=== PATIENT | male | born 1940 | race Caucasian/White ===

== ENCOUNTER 2019-05-01 16:36 | Inpatient (IN) | payer MEDICARE ==
[2019-05-01] MEDS ORDERED: NALOXONE 0.4 MG/ML 1 ML VIAL IV PRN (17:24)
[2019-05-01] MEDS ORDERED: IBUPROFEN 400 MG TAB PO PRN (17:24)
[2019-05-01] MEDS ORDERED: traMADol 50 MG TAB PO PRN (17:24)
[2019-05-01] MEDS ORDERED: ACETAMINOPHEN TAB 325 MG TAB PO PRN (17:24)
[2019-05-01] MEDS ORDERED: MORPHINE SULFATE 4 MG/ML SYRINGE IV PRN (17:24)
[2019-05-01] MEDS ORDERED: HYDROmorphone 0.5 MG/0.5 ML SYRINGE IVP PRN (17:24)
[2019-05-01] MEDS ORDERED: cefTRIAXone IN SWFI 1,000 MG/10 ML SYRINGE IVP STA (17:28)
[2019-05-01 18:17] LABS: Basophils # (A) 0.1 k/uL (0-0.2); Basophils % (A) 1 %; Eosinophils # (A) 0.3 k/uL (0-0.7); Eosinophils % (A) 4 %; HCT 44.7 % (39.0-53.0); HGB 14.5 gm/dL (13.0-17.5); Lymphocytes # (A) 1.6 k/uL (1.0-4.8); Lymphocytes % (A) 27 %; MCH 31.8 pg (25.0-35.0); MCHC 32.5 g/dL (31.0-37.0); Mean Platelet Volume 8.8; Monocytes # (A) 0.3 k/uL (0-1.0); Monocytes % (A) 5 %; Neutrophils # (A) 3.7 k/uL (1.3-7.7); Neutrophils % (A) 62 %; Platelet Count 162 k/uL (150-450); RBC 4.56 m/uL (4.30-5.90); RDW 13.5 % (11.5-15.5)
--- NOTE | 2019-05-01 18:17 | XR ---
EXAMINATION TYPE: XR tibia fibula LT DATE OF EXAM: 05/01/2019 COMPARISON: NONE HISTORY: Nonhealing wound TECHNIQUE: 4 views FINDINGS: I see no fracture nor dislocation. There is laceration deformity of the anterior soft tissu es of the mid tibia. There is no sign of a foreign body. Knee joint and ankle joint appear intact. IMPRESSION: Soft tissue deformity. No fracture seen. No sign of osteomyelitis.
[2019-05-01 18:26] LABS: Calcium 8.8 mg/dL (8.4-10.2); Potassium 5.5 mmol/L (3.5-5.1); Total Bilirubin 0.9 mg/dL (0.2-1.3); Total Protein 6.9 g/dL (6.3-8.2)
--- NOTE | 2019-05-01 18:30 | ED ---
General Adult HPI - General Chief complaint: Wound/Laceration Stated complaint: Infection on Leg Time Seen by Provider: 05/01/19 16:44 Source: patient Mode of arrival: ambulatory Limitations: no limitations - History of Present Illness Initial comments: Patient is 78-year-old diabetic male presenting to emergency Department with a chief complaint of an infected wound on the leg. Patient reports he felt although approximately 2 weeks ago and lacerated the anterior aspect of his left lower extremity. Patient reports once he had the sutures removed he had developed a problem. Patient reports the wound has been increasing in size as well as erythema surrounding the wound. Patient reports over the last 5 days he has developed yellowish discharge. Patient also reports over the last 2 days a foul odor has developed. Patient denies fevers, night sweats or chills. Patient reports bilateral lower extremity edema states that is his baseline due to poor lymphatic circulation. - Related Data Home Medications Medication Instructions Recorded Confirmed Glimepiride [Amaryl] 4 mg PO BID 12/16/15 05/01/19 Metoprolol Succinate [Toprol XL] 100 mg PO DAILY 12/16/15 05/01/19 Albuterol Sulfate [Proair Hfa] 1 - 2 puff INHALATION Q6HR PRN 05/01/19 05/01/19 Allopurinol [Zyloprim] 100 mg PO DAILY 05/01/19 05/01/19 Atorvastatin Calcium [Lipitor] 40 mg PO HS 05/01/19 05/01/19 Clopidogrel Bisulfate [Plavix] 75 mg PO HS 05/01/19 05/01/19 Furosemide [Lasix] 20 mg PO DAILY PRN 05/01/19 05/01/19 Gabapentin [Neurontin] 100 mg PO TID 05/01/19 05/01/19 Lisinopril 20 mg PO HS 05/01/19 05/01/19 metFORMIN HCL [Glucophage] 500 mg PO BID 05/01/19 05/01/19 Allergies Allergy/AdvReac Type Severity Reaction Status Date / Time iodine Allergy Rash/Hives Verified 05/01/19 18:02 Penicillins Allergy Rash/Hives Verified 05/01/19 18:02 Review of Systems ROS Statement: Those systems with pertinent positive or pertinent negative responses have been documented in the HPI. ROS Other: All systems not noted in ROS Statement are negative. Past Medical History Past Medical History: COPD, Diabetes Mellitus, Hyperlipidemia, Hypertension History of Any Multi-Drug Resistant Organisms: None Reported Past Surgical History: Cholecystectomy, Coronary Bypass/CABG Additional Past Surgical History / Comment(s): Muscle flap over chest, Bilateral vein stripping, Bilateral chordids cleaned. Past Psychological History: No Psychological Hx Reported Smoking Status: Former smoker Past Alcohol Use History: Occasional Past Drug Use History: None Reported General Exam Limitations: no limitations General appearance: alert, in no apparent distress Head exam: Present: atraumatic, normocephalic, normal inspection Eye exam: Present: normal appearance, PERRL, EOMI Pupils: Present: normal accommodation ENT exam: Present: normal exam, mucous membranes moist, normal external ear exam Neck exam: Present: normal inspection, full ROM Respiratory exam: Present: normal lung sounds bilaterally Cardiovascular Exam: Present: regular rate, normal rhythm, normal heart sounds Extremities exam: Present: full ROM (Full range of motion bilateral lower e xtremities), tenderness (Tenderness along the wound site on the anterior aspect of the left lower extremity), normal capillary refill, pedal edema (+3 nonpitting edema), other (Bilateral lower extremity edema). Absent: normal inspection (Draining wound on the anterior aspect of the left lower extremity in linear fashion measuring approximately 6 cm. Surrounding erythema.), calf tenderness Back exam: Present: normal inspection, full ROM. Absent: CVA tenderness (R), CVA tenderness (L) Neurological exam: Present: alert, oriented X3 Psychiatric exam: Present: normal affect, normal mood Skin exam: Present: warm, intact, normal color Course Vital Signs 05/01/19 16:41 Temperature 97.4 F L Pulse Rate 53 L Respiratory 18 Rate Blood Pressure 172/75 O2 Sat by Pulse 98 Oximetry Medical Decision Making - Medical Decision Making Patient is 78-year-old diabetic male presented emergency department with a chief complaint of a wound on the left leg. Based on history and physical examination the wound appears to be increasing in size. Patient also reports increasing severity in pain. Wound appears to be infected with no developed foul odor. x-ray is indicative of soft tissue deformity but no signs osteomyelitis this is noted. CBC is unremarkable. CMP showing elevated BUN and creatinine. Blood cultures and lactic acid pending. Patient given Rocephin. Due to the fact the patient is diabetic and the wound appears to be infected along with new onset of order, patient will be admitted for further medical management. Case discussed with Dr. Lind. Admitting physician is Dr. Montana. - Lab Data Result diagrams: 05/01/19 18:11 05/01/19 18:11 Lab Results 05/01/19 05/01/19 05/01/19 Range/Units 18:11 18:11 18:11 WBC 6.0 (3.8-10.6) k/uL RBC 4.56 (4.30-5.90) m/uL Hgb 14.5 (13.0-17.5) gm/dL Hct 44.7 (39.0-53.0) % MCV 98.0 (80.0-100.0) fL MCH 31.8 (25.0-35.0) pg MCHC 32.5 (31.0-37.0) g/dL RDW 13.5 (11.5-15.5) % Plt Count 162 (150-450) k/uL Neutrophils % 62 % Lymphocytes % 27 % Monocytes % 5 % Eosinophils % 4 % Basophils % 1 % Neutrophils # 3.7 (1.3-7.7) k/uL Lymphocytes # 1.6 (1.0-4.8) k/uL Monocytes # 0.3 (0-1.0) k/uL Eosinophils # 0.3 (0-0.7) k/uL Basophils # 0.1 (0-0.2) k/uL Sodium 138 (137-145) mmol/L Potassium 5.5 H (3.5-5.1) mmol/L Chloride 106 (98-107) mmol/L Carbon Dioxide 24 (22-30) mmol/L Anion Gap 8 mmol/L BUN 28 H (9-20) mg/dL Creatinine 1.97 H (0.66-1.25) mg/dL Est GFR (CKD-EPI)AfAm 37 (>60 ml/min/1.73 sqM) Est GFR (CKD-EPI)NonAf 32 (>60 ml/min/1.73 sqM) Glucose 144 H (74-99) mg/dL Plasma Lactic Acid Tyler 0.9 (0.7-2.0) mmol/L Calcium 8.8 (8.4-10.2) mg/dL Total Bilirubin 0.9 (0.2-1.3) mg/dL AST 25 (17-59) U/L ALT 23 (21-72) U/L Alkaline Phosphatase 102 (38-126) U/L Total Protein 6.9 (6.3-8.2) g/dL Albumin 4.0 (3.5-5.0) g/dL Disposition Clinical Impression: Diabetic ulcer of lower leg Disposition: HOME SELF-CARE Condition: Stable Instructions (If sedation given, give patient instructions): Diabetic Foot Ulcers (ED), Foot Care for People with Diabetes (ED) Additional Instructions: Patient will be admitted. Is patient prescribed a controlled substance at d/c from ED?: No Referrals: Pb Muir MD [Primary Care Provider] - 1-2 days Time of Disposition: 18:34
[2019-05-01] MEDS: SODIUM CHLORIDE 0.9% 1,000 ML IV SCH (19:54)
[2019-05-01 20:37] LABS: Glucose,Whole Blood 127 mg/dL (75-99)
[2019-05-01] MEDS: GABAPENTIN 100 MG CAP PO SCH (23:38)
[2019-05-01] MEDS: CLOPIDOGREL 75 MG TAB PO SCH (23:38)
[2019-05-01] MEDS: ATORVASTATIN 40 MG TAB PO SCH (23:38)
[2019-05-01] MEDS ORDERED: HYDROcodone/APAP 5-325MG 1 EACH TAB PO PRN (23:47)
[2019-05-01] MEDS ORDERED: ALPRAZolam 0.25 MG TAB PO PRN (23:47)
[2019-05-02] MEDS ORDERED: LEVOFLOXACIN 500MG-D5W PMX 500 MG in DEXTROSE/WATER 1 100ML.BAG IVPB ONE (01:00)
[2019-05-02 02:52] LABS: Appearance,Urine Clear (Clear); Bilirubin,Urine Negative (Negative); Blood,Urine Negative (Negative); Color,Urine Light Yellow; Glucose,Urine (UA) Negative (Negative); Ketones,Urine Negative (Negative); Leukocyte Esterase,Urine Negative (Negative); Nitrite,Urine Negative (Negative); PH, Urine 6.5 (5.0-8.0); Protein,Urine Trace (Negative); Urobilinogen,Urine <2.0 mg/dL (<2.0)
--- NOTE | 2019-05-02 07:15 | HP ---
HISTORY AND PHYSICAL CHIEF COMPLAINT: Pain and swelling and wound of the left leg. HISTORY OF PRESENT ILLNESS: This 78-year-old gentleman with a past medical history of multiple medical problems including COPD, diabetes mellitus, hypertension, hyperlipidemia, history of CAD, CABG being followed by Dr. Pb Muir in the outpatient setting admitted with pain and swelling of infection of the left leg with increase in swelling. The patient suffered an injury with laceration about 2 weeks ago. There is no history of fever, rigors. No history of headache, loss of consciousness or seizures. The patient had sutures which were removed and had problems subsequently. PAST MEDICAL HISTORY: History of COPD, diabetes mellitus, hypertension, hyperlipidemia, history of CAD, CABG. MEDICATIONS: Medications prior to admission include home medications: 1. Lisinopril 20 mg q.h.s. 2. Lasix 20 mg q.h.s. 3. Plavix 75 mg p.o. q.h.s. 4. Lipitor 40 mg q.h.s. 5. ProAir HFA 1 to 2 puffs q.6 p.r.n. 6. Toprol XL 100 mg p.o. daily. 7. Amaryl 4 mg p.o. b.i.d. 8. Zyloprim 100 mg p.o. daily. 9. Glucophage 500 mg p.o. b.i.d. 10.Neurontin 100 mg t.i.d. ALLERGIES: IODINE and PENICILLIN. FAMILY HISTORY: No history of heart disease or strokes in the family. SOCIAL HISTORY: Previous history of smoking. Occasional alcohol intake. REVIEW OF SYSTEMS: ENT: No diminished hearing or diminished vision. CARDIOVASCULAR SYSTEM: No angina. RESPIRATORY SYSTEM: No cough or hemoptysis. GI: No nausea. : No dysuria. NERVOUS SYSTEM: No numbness or weakness. ALLERGY/IMMUNOLOGY: No asthma or hayfever. MUSCULOSKELETAL: As mentioned earlier. HEMATOLOGY/ONCOLOGY: No history of anemia. ENDOCRINE: Diabetes mellitus. CONSTITUTIONAL: As mentioned earlier. DERMATOLOGY: As mentioned earlier. RHEUMATOLOGY: Negative. PSYCHIATRY: As mentioned earlier. PHYSICAL EXAMINATION: The patient is alert and oriented x3. Pulse is 53, blood pressure 172/75, respiration 18, temperature 97.4, pulse ox 98% on room air. HEENT: Conjunctivae normal. Oral mucosa moist. NECK is no jugular venous distention. No carotid bruit. No lymph node enlargement. CARDIOVASCULAR: S1, S2 muffled. RESPIRATORY: Breath sounds diminished at the bases. No rhonchi, no crackles. ABDOMEN: Soft, nontender. No mass palpable. LEGS: Significant swelling and pain and swelling and erythema and wound on the left chacko area present. Some yellowish discharge also present. NERVOUS SYSTEM: Higher functions as mentioned. Moves all 4 limbs. No focal motor LYMPHATICS: No lymphadenopathy of the neck, axillae or groin. JOINTS: No active deforming arthropathy. LABS: WBC 6, hemoglobin 14.5, sodium 138, potassium 5.5, creatinine 1.97. ASSESSMENT: 1. Cellulitis and infected wound of the left chacko area with failure of outpatient treatment. 2. Increased creatinine with possibly chronic kidney disease. 3. Hyperkalemia, mild. 4. Diabetes mellitus type 2. 5. Hypertension. 6. Hyperlipidemia. 7. Chronic obstructive pulmonary disease. 8. History of coronary artery disease, coronary artery bypass grafting. 9. Cholecystectomy. 10.Remote history of nicotine dependence. 11.Obesity with body mass of 32.5. RECOMMENDATIONS AND DISCUSSION: This 78-year-old gentleman who presented with multiple medical issues, at this time I recommend to continue current medications, continue symptomatic treatment, on broad- spectrum IV antibiotics. Otherwise, I would also get infectious Disease, orthopedic evaluations and resume the home medications. Prognosis guarded because of multiple complex medical issues. Further recommendations to follow. The patient is allergic to PENICILLINS. We will obtain cultures as well. DVT prophylaxis. See orders for details. We will avoid lisinopril because of hyperkalemia. Repeat labs will be ordered. MMODL / IJN: [id number] /
[2019-05-02 07:23] LABS: Glucose,Whole Blood 141 mg/dL (75-99)
[2019-05-02] MEDS: ALBUTEROL NEBULIZED 2.5 MG/3 ML INHALATION PRN ×2 (07:39→16:18)
[2019-05-02] MEDS: METOPROLOL SUCCINATE (ER) 100 MG TAB.ER.24H PO SCH (07:53)
[2019-05-02] MEDS: GABAPENTIN 100 MG CAP PO SCH ×3 (07:53→21:27)
[2019-05-02] MEDS: ALLOPURINOL 100 MG TAB PO SCH (07:53)
[2019-05-02] MEDS: INSULIN ASPART (NovoLOG) 100 UNIT/ML VIAL SQ SCH ×4 (07:54→21:44)
[2019-05-02] MEDS: HEPARIN SODIUM,PORCINE 5,000 UNIT/ML 1 ML VIAL SQ SCH ×2 (07:54→21:45)
--- NOTE | 2019-05-02 08:20 | US ---
EXAMINATION TYPE: US venous doppler duplex LE LT DATE OF EXAM: 05/02/2019 7:51 AM COMPARISON: NONE CLINICAL HISTORY: dvt. left leg ulcer, swelling, no h/o dvt SIDE PERFORMED: Left TECHNIQUE: The lower extremity deep venous system is examined utilizing real time linear array sonog juice with graded compression, doppler sonography and color-flow sonography. VESSELS IMAGED: External Iliac Vein (EIV) Common Femoral Vein Deep Femoral Vein Greater Saphenous Vein * Femoral Vein Popliteal Vein Small Saphenous Vein * Proximal Calf Veins (* superficial vessels) Left Leg: Appears negative for DVT IMPRESSION: 1. Left lower extremity ultrasound negative for deep venous thrombosis.
[2019-05-02] MEDS: SODIUM CHLORIDE 0.9% 1,000 ML IV SCH ×2 (09:47→19:35)
[2019-05-02 09:52] LABS: Basophils # (A) 0.1 k/uL (0-0.2); Basophils % (A) 1 %; Eosinophils # (A) 0.2 k/uL (0-0.7); Eosinophils % (A) 3 %; HCT 42.9 % (39.0-53.0); HGB 13.5 gm/dL (13.0-17.5); Lymphocytes # (A) 1.1 k/uL (1.0-4.8); Lymphocytes % (A) 20 %; MCH 30.7 pg (25.0-35.0); MCHC 31.5 g/dL (31.0-37.0); MCV 97.4 fL (80.0-100.0); Mean Platelet Volume 9.5; Monocytes # (A) 0.2 k/uL (0-1.0); Monocytes % (A) 4 %; Neutrophils % (A) 71 %; Platelet Count 157 k/uL (150-450); RDW 14.3 % (11.5-15.5); WBC 5.6 k/uL (3.8-10.6)
[2019-05-02 10:01] LABS: Calcium 8.6 mg/dL (8.4-10.2)
--- NOTE | 2019-05-02 10:08 | CDI ---
Documentation Clarification Form Date: 05/02/2019 9:29:28 AM From: Shama Dietrich RN CCDS Admit Date: 05/01/2019 5:22:00 PM Patient Name: Mann Negron Visit Number: [id number] Discharge Date: ATTENTION: The Clinical Documentation Specialists (CDI) and [facility] Coding Staff appreciate your assistance in clarifying documentation. Please respond to the clarification below the line at the bottom and electronically sign. The CDI & [facility] Coding staff will review the response and follow-up if needed. Please note: Queries are made part of the Legal Health Record. If you have any questions, please contact the author of this message via ITS. Dr. Abisai Montana The patient has diabetes type 2 , as indicated on H & P 05/01/2019 History/Risk Factors: 78 year old male presents to the ED after out patient treatment of an laceration injury that happened about two weeks ago which is painful, and increased swelling. Med Hx COPD DM HTN hyperlipidemia CAD CABG Clinical Indicators: Wound gram stain - Rare Polymorphonuclear leukocytes, many Gram Positive Cocci many gram positive bacilli and a few gram negative bacilli Treatment: Novolog, Levofloxacin ivpb, Infectious Disease Consult , Orthopedic Consult In order to capture the severity of Illness and necessary documentation specificity, please Clarify Left chacko wound infection with cellulitis is related to DM Type 2 Left chacko wound infection with cellulitis is not related to DM Type Other, please specify Unable to Determine (Last Revision: June 2017) Left chacko wound infection with cellulitis is related to DM Type 2 MTDD
[2019-05-02 10:22] LABS: Potassium 6.5 mmol/L (3.5-5.1)
[2019-05-02] MEDS ORDERED: DEXTROSE 50% SYRINGE 50 ML IVP STA (10:33)
[2019-05-02] MEDS ORDERED: SODIUM POLYSTYRENE SULFONATE 15 GM/60 ML BOTTLE PO STA (10:33)
[2019-05-02] MEDS ORDERED: INSULIN REGULAR 100 UNIT/ML VIAL IV ONE ×2 (10:33→20:19)
[2019-05-02] MEDS ORDERED: CALCIUM GLUCONATE 1 GM in SODIUM CHLORIDE 0.9% 100 ML IVPB ONE (10:33)
[2019-05-02] MEDS ORDERED: DEXTROSE 10 % IN WATER 250 ML IV STA (10:37)
[2019-05-02 12:16] LABS: Glucose,Whole Blood 244 mg/dL (75-99)
--- NOTE | 2019-05-02 12:24 | P.NPCON ---
History of Present Illness - Reason for Consult acute renal failure - History of Present Illness Reason for consultation: Acute kidney injury History of present illness: Patient is a 78-year-old male seen in renal consultation for acute kidney injury. Unclear as to what his baseline renal function is. Creatinine was 1.97 on admission and is 1.77 today. He is maintained on IV fluids. Admits to good urine output. No hematuria or dysuria. Patient presented to the hospital with wound on his left lower extremity. Patient did notice yellowish drainage from the wound. He is currently maintained on IV antibiotics. States he was diagnosed with diabetes about 5 years ago. Patient states he did take some Aleve about a week ago but hasn't taken it the last few days. No vomiting or diarrhea. No chest pain or shortness of breath. Patient's potassium level is 6.5 today. Lisinopril is held. Blood sugar also on the higher side at 221. UA is quite benign. No evidence of hypotension. In fact his blood pressure is slightly on the higher side. Vital signs are stable. General: The patient appeared well nourished and normally developed. HEENT: Head exam is unremarkable. Neck is without jugular venous distension. LUNGS: Lungs are clear to auscultation and percussion. Breath sounds decreased. HEART: Rate and Rhythm are regular. First and second heart sounds normal. No murmurs, rubs or gallops. ABDOMEN: Abdominal exam reveals normal bowel sounds. Non-tender and non- distended. No evidence of peritonitis. EXTREMITITES: No clubbing, cyanosis, or edema. Left lower extremity wound noted. No obvious drainage. Past Medical History Past Medical History: COPD, Diabetes Mellitus, Hyperlipidemia, Hypertension History of Any Multi-Drug Resistant Organisms: None Reported Past Surgical History: Cholecystectomy, Coronary Bypass/CABG Additional Past Surgical History / Comment(s): Muscle flap over chest, Bilateral vein stripping, Bilateral chordids cleaned. Past Anesthesia/Blood Transfusion Reactions: No Reported Reaction Past Psychological History: No Psychological Hx Reported Smoking Status: Former smoker Past Alcohol Use History: Occasional Past Drug Use History: None Reported - Past Family History Father Family Medical History: Diabetes Mellitus Medications and Allergies Home Medications Medication Instructions Recorded Confirmed Type Glimepiride [Amaryl] 4 mg PO BID 12/16/15 05/01/19 History Metoprolol Succinate [Toprol XL] 100 mg PO DAILY 12/16/15 05/01/19 History Albuterol Sulfate [Proair Hfa] 1 - 2 puff INHALATION Q6HR PRN 05/01/19 05/01/19 History Allopurinol [Zyloprim] 100 mg PO DAILY 05/01/19 05/01/19 History Atorvastatin Calcium [Lipitor] 40 mg PO HS 05/01/19 05/01/19 History Clopidogrel Bisulfate [Plavix] 75 mg PO HS 05/01/19 05/01/19 History Furosemide [Lasix] 20 mg PO DAILY PRN 05/01/19 05/01/19 History Gabapentin [Neurontin] 100 mg PO TID 05/01/19 05/01/19 History Lisinopril 20 mg PO HS 05/01/19 05/01/19 History metFORMIN HCL [Glucophage] 500 mg PO BID 05/01/19 05/01/19 History Allergies Allergy/AdvReac Type Severity Reaction Status Date / Time iodine Allergy Rash/Hives Verified 05/01/19 18:02 Penicillins Allergy Rash/Hives Verified 05/01/19 18:02 Physical Exam Vitals: Vital Signs Temp Pulse Pulse Resp BP BP Pulse Ox 05/02/19 07:49 56 L 16 05/02/19 07:39 54 L 16 05/02/19 07:06 97.3 F L 59 L 16 153/78 93 L 05/01/19 20:25 97.9 F 53 L 16 157/72 92 L 05/01/19 20:02 97.1 F L 16 L 52 H 96 05/01/19 18:48 98.6 F 05/01/19 16:41 97.4 F L 53 L 18 172/75 98 Intake and Output 05/01/19 05/02/19 05/02/19 22:59 06:59 14:59 Other: # Voids 1 Weight 108.862 kg Results - Lab Results Most recent lab results Calcium 8.6 mg/dL (8.4-10.2) 05/02/19 09:04 05/02/19 09:04 05/02/19 09:04 Assessment and Plan Plan: Assessment: 1. Acute kidney injury mostly prerenal improving with IV hydration. Creatinine was 1.97 on admission and is 1.77 today. UA reveals trace proteinuria. Rule out urinary retention. Unknown baseline creatinine. Will need to establish baseline renal function. 2. Left lower extremity wound maintained on IV antibiotics. No evidence of DVT. 3. Hyperkalemia secondary to acute kidney injury and lisinopril. No evidence of acidosis. Blood sugar is not too elevated. 4. Diabetes mellitus. 5. Benign hypertension. Plan: I will decrease rate of normal saline to 50 mL an hour. 10 units of IV insulin with an amp of D50 now. Patient also received IV calcium and Kayexalate. Repeat potassium level at 3 PM today. Low potassium diet. Avoid nephrotoxins. Continue to hold lisinopril. Continue to monitor renal function and urine output. Check bladder scan to rule out underlying urinary retention. Check renal ultrasound. Thank you for the consultation. I will continue to follow the patient with you during his hospital stay.
[2019-05-02] MEDS: DEXTROSE 5% IN WATER 1,000 ML with SODIUM BICARB (1 MEQ/ML) 50 ML IV SCH ×2 (12:36→21:43)
--- NOTE | 2019-05-02 15:39 | US ---
EXAMINATION TYPE: US renals and bladder DATE OF EXAM: 05/02/2019 COMPARISON: NONE CLINICAL HISTORY: dolly. DOLLY EXAM MEASUREMENTS: Right Kidney: 12.6 x 5.3 x 4.5 cm Left Kidney: 11.0 x 4.7 x 4.1 cm Right Kidney: Prominent mid pole measuring 4.0 x 2.7 x 3.5 cm. Left Kidney: wnl Bladder: Anechoic Bilateral Jets seen: Yes IMPRESSION: 1. There is an unusual appearance to the mid pole right kidney. Underlying mass should be considered. Recommend contrast CT abdomen and pelvis for additional evaluation.
--- NOTE | 2019-05-02 16:06 | PN ---
PROGRESS NOTE DATE OF SERVICE: 05/02/2019 This 78-year-old gentleman who was admitted with pain and swelling of the left leg has significant ulceration and cellulitis also. The patient is on broad-spectrum IV antibiotics. Today the patient also had potassium elevated at 6.5. Creatinine was 1.77. Hyperkalemia could be multifactorial, and the patient was given Kayexalate as well as a combination insulin/glucose regimen with bicarbonate and potassium and calcium gluconate, also. Nephrology has been consulted. Patient is being closely monitored at this time. Infectious Disease has been evaluating the patient. Patient is on broad- spectrum IV antibiotics. Cultures are pending at this time. Past medical history reviewed. REVIEW OF SYSTEMS: CARDIOVASCULAR SYSTEM: As mentioned earlier. RESPIRATORY SYSTEM: As mentioned earlier. GI: No nausea, vomiting. : No dysuria or retention. NERVOUS SYSTEM: No numbness, weakness. CURRENT MEDICATIONS: Reviewed. They include: 1. Tylenol 650 q.6 p.r.n. 2. [place] 5 mg q.6 p.r.n. 3. Ventolin 2.5 q.6 p.r.n. 4. Zyloprim 100 mg p.o. daily. 5. Xanax 0.25 t.i.d. 6. Lipitor 40 mg at bedtime. 7. Plavix 75 mg p.o. at bedtime. 8. Neurontin 100 mg p.o. t.i.d. 9. Heparin 5000 units subcutaneously b.i.d. 10.Dilaudid 0.5 mg q.3 p.r.n. 11.NovoLog scale. 12.Levaquin 250 mg b.i.d. 13.Toprol-XL 100 mg p.o. daily. 14.Morphine 4 mg p.r.n. 15.Narcan 0.2 q.2 p.r.n. 16.Ultram 50 mg q.6 p.r.n. PHYSICAL EXAMINATION: Patient is alert, oriented x3. Pulse 59, blood pressure 153/78, respirations 16, temperature 97.3, pulse ox 93% on room air. HEENT: Conjunctivae normal. Oral mucosa moist. NECK: No jugular venous distention. No carotid bruit. No lymph node enlargement. CARDIOVASCULAR SYSTEM: S1, S2 muffled. No S3. No S4. RESPIRATORY SYSTEM: Breath sounds diminished at the bases. No rhonchi. No crackles. ABDOMEN: Soft, non-tender. No mass palpable. LEGS: Significant swelling, pain and ulceration of the left leg present. Some tenderness also present. NERVOUS SYSTEM: Higher functions as mentioned earlier. Moves all 4 limbs. No focal motor or sensory deficit. LYMPHATICS: No lymph node palpable in neck, axillae or groin. SKIN: As mentioned earlier. JOINTS: No active deforming arthropathy. LABS: WBC 5.6, hemoglobin 13.4. Sodium 139, potassium 6.5, BUN is 23, creatinine 1.77. UA noted. ASSESSMENT: 1. Cellulitis and infected wound of the left chacko area with failure of outpatient treatment. 2. Hyperkalemia, severe, secondary to renal failure. 3. Increased creatinine, possibly chronic kidney disease, stage III, with some acute renal failure component. 4. Diabetes mellitus, type 2. 5. Hypertension. 6. Hyperlipidemia. 7. Chronic obstructive pulmonary disease. 8. History of coronary artery disease, coronary artery bypass grafting. 9. Cholecystectomy. 10.Remote history of nicotine dependence. 11.Obesity with body mass index of 32.5. RECOMMENDATIONS AND DISCUSSION: I recommend to continue current medications, continue with the monitoring, symptomatic treatment. Continue with IV antibiotics. Will closely monitor with Nephrology as well as Infectious Disease. The potassium is elevated at 6.5. Recommend low-potassium diet as well as Kayexalate and insulin/glucose regimen. Please see orders for the same. As mentioned earlier, we will repeat the electrolytes and closely follow with Nephrology. Otherwise, monitor blood sugars closely. The prognosis is guarded because of multiple complex medical issues. Hemoglobin A1c is also being sought. Further recommendations to follow. Renal ultrasound has been requested. Venous Doppler was negative for any DVT. MMODL / IJN: [id number] /
[2019-05-02 17:12] LABS: Glucose,Whole Blood 79 mg/dL (75-99)
--- NOTE | 2019-05-02 20:11 | P.CNOR ---
<Regulo Peña - Last Filed: 05/02/19 20:11> History of Present Illness - [facility] Consult date: 05/02/19 History of present illness: This patient is a 78-year-old male past medical history of COPD, diabetes type 2, hypertension, hyperlipidemia, history of CABG currently taking Plavix who sustained an injury to the left lower leg about 2 weeks ago. The patient states that [place] and he [place], and sustained a laceration. He states he was evaluated at [facility] following injury, and sutures are placed. Patient states his sutures were removed at his primary care physician's office 2 days later. He states he was never given oral antibiotics. He states he started to notice drainage and erythema of the area, and he also noticed an odor from the area, therefore he was evaluated at an urgent care. He states the provider at the urgent care directed the patient to the emergency department for evaluation. The patient was seen to [facility] ER and placed on IV antibiotics, and was subsequently admitted to internal medicine with consults placed to infectious disease and orthopedic surgery. Patient denies fevers, chills, nausea, vomiting. He states overall he feels well. He denies any additional complaints at the time of exam. Past Medical History Past Medical History: COPD, Diabetes Mellitus, Hyperlipidemia, Hypertension History of Any Multi-Drug Resistant Organisms: None Reported Past Surgical History: Cholecystectomy, Coronary Bypass/CABG Additional Past Surgical History / Comment(s): Muscle flap over chest, Bilateral vein stripping, Bilateral chordids cleaned. Past Anesthesia/Blood Transfusion Reactions: No Reported Reaction Past Psychological History: No Psychological Hx Reported Smoking Status: Former smoker Past Alcohol Use History: Occasional Past Drug Use History: None Reported - Past Family History Father Family Medical History: Diabetes Mellitus Medications and Allergies Home Medications Medication Instructions Recorded Confirmed Type Glimepiride [Amaryl] 4 mg PO BID 12/16/15 05/01/19 History Metoprolol Succinate [Toprol XL] 100 mg PO DAILY 12/16/15 05/01/19 History Albuterol Sulfate [Proair Hfa] 1 - 2 puff INHALATION Q6HR PRN 05/01/19 05/01/19 History Allopurinol [Zyloprim] 100 mg PO DAILY 05/01/19 05/01/19 History Atorvastatin Calcium [Lipitor] 40 mg PO HS 05/01/19 05/01/19 History Clopidogrel Bisulfate [Plavix] 75 mg PO HS 05/01/19 05/01/19 History Furosemide [Lasix] 20 mg PO DAILY PRN 05/01/19 05/01/19 History Gabapentin [Neurontin] 100 mg PO TID 05/01/19 05/01/19 History Lisinopril 20 mg PO HS 05/01/19 05/01/19 History metFORMIN HCL [Glucophage] 500 mg PO BID 05/01/19 05/01/19 History Allergies Allergy/AdvReac Type Severity Reaction Status Date / Time iodine Allergy Rash/Hives Verified 05/01/19 18:02 Penicillins Allergy Rash/Hives Verified 05/01/19 18:02 Physical Examination On examination, the patient is sitting up in bed in no apparent distress. He is alert and orientated x3. Granddaughter's bedside. His head appears normocephalic and atraumatic. His breathing appears nonlabored. On inspection of the left lower extremity, there is an Deion wrap in place. Deion wrap was taken down and reveals a wound of the pretibial area with active yellow drainage. The wound is foul-smelling. The wound appears to be about 4-5 cm. There is barton rrounding erythema and tenderness. There is no fluctuance. There is no tenderness on palpation of the calf. Patient has full range of motion of the ankle and toes. Sensation is intact to light touch of the plantar and dorsal foot, as well as the dorsal first webspace. Dorsalis pedis pulse palpable. Brisk capillary refill of all toes. Results Left tibia/fibula x-ray 05/01/19: No acute fractures. No signs of osteomyelitis. Doppler ultrasound left lower extremity 05/02/2019: Negative for DVT. - Labs Labs: Abnormal Lab Results - Last 24 Hours (Table) 05/01/19 05/02/19 05/02/19 Range/Units 20:36 02:35 07:03 Potassium (3.5-5.1) mmol/L BUN (9-20) mg/dL Creatinine (0.66-1.25) mg/dL Glucose (74-99) mg/dL POC Glucose (mg/dL) 127 H 141 H (75-99) mg/dL Urine Protein Trace H (Negative) 05/02/19 05/02/19 05/02/19 Range/Units 09:04 11:55 14:41 Potassium 6.5 H* 5.8 H (3.5-5.1) mmol/L BUN 23 H (9-20) mg/dL Creatinine 1.77 H (0.66-1.25) mg/dL Glucose 221 H (74-99) mg/dL POC Glucose (mg/dL) 244 H (75-99) mg/dL Urine Protein (Negative) Microbiology - Last 24 Hours (Table) 05/01/19 18:40 Gram Stain - Preliminary Leg - Left Wound Culture - Preliminary H & H 05/01/19 05/02/19 Range/Units 18:11 09:04 Hgb 14.5 13.5 (13.0-17.5) gm/dL Hct 44.7 42.9 (39.0-53.0) % Result Diagrams: 05/02/19 09:04 05/02/19 14:41 Assessment and Plan Assessment: Infected wound left anterior lower leg, with surrounding cellulitis Plan: - Supportive treatment is recommended at this time. There is no operative intervention planned at this time. - Recommended local wound care, and continuation of IV antibiotics per infectious disease and internal medicine. - Wound cultures pending. - We will continue to follow this patient as he remains an inpatient make recommendations as needed. We will reassess the need for operative intervention if his condition worsens. Patient discussed with Dr. Mata. <Timi Mata - Last Filed: 05/03/19 15:27> Results - Labs Labs: Abnormal Lab Results - Last 24 Hours (Table) 05/02/19 05/03/19 05/03/19 Range/Units 21:01 06:36 06:58 Potassium 5.5 H (3.5-5.1) mmol/L Creatinine 1.56 H (0.66-1.25) mg/dL Glucose 183 H (74-99) mg/dL POC Glucose (mg/dL) 179 H 191 H (75-99) mg/dL 05/03/19 Range/Units 11:49 Potassium (3.5-5.1) mmol/L Creatinine (0.66-1.25) mg/dL Glucose (74-99) mg/dL POC Glucose (mg/dL) 124 H (75-99) mg/dL Microbiology - Last 24 Hours (Table) 05/01/19 18:05 Blood Culture - Preliminary Blood No Growth after 24 hours H & H 05/01/19 05/02/19 05/03/19 Range/Units 18:11 09:04 06:36 Hgb 14.5 13.5 14.8 (13.0-17.5) gm/dL Hct 44.7 42.9 46.5 (39.0-53.0) % Result Diagrams: 05/03/19 06:36 05/03/19 06:36 Assessment and Plan Plan: Discussed with CORI Peña and agree with above. Patient was subsequently seen and examined by myself as well. Family was at bedside. S: The patient denies history of chronic infections but does admit that he is slow to heal. Past medical history significant for bilateral lower extremity vascular surgery to "clean out" the vessels. He also required what sounds like a repair of the sternal wound dehiscence status post CABG with a likely pectoralis or latissimus flap. He states his diabetes is usually under better control with blood sugars averaging around 150. He states the wound and the leg is particularly painful most times but does cause occasional discomfort and radiating sensations of warmth around the wound. He denies fevers, chills or systemic feelings of illness. O: Examination of the left leg reveals a shallow, horseshoe-shaped open wound on the anterior aspect of the mid tibia. There is mild surrounding erythema, calor or edema but no discrete subcutaneous fluctuance or pockets of fluid to suggest abscess. The wound is malodorous. There is mild yellow drainage on the dressings but no florencio pus. The wound bed is moist with bazzi/yellow granular tissue. There is no visible exposed muscle or bone. Minimal tenderness to palpation immediately surrounding the wound. Note is made of chronic venous stasis changes in bilateral lower extremities. A: 1. Superficial wound infection with surrounding cellulitis status post traumatic laceration to the left leg 2. Multiple medical comorbidities including diabetes mellitus and peripheral vascular disease P: I discussed the clinical findings in detail with Mr. Negron and his family. We discussed the pros and cons of both nonsurgical and surgical interventions. I do not feel the wound requires surgical debridement at this time but this is certainly an option in the future if this fails to adequately respond to treatment with local wound care and IV antibiotics. Given his comorbidities and the location of the wound, surgical debridement would likely need to be followed by staged wound closure with either a synthetic graft versus a muscle flap such as a medial gastrocnemius flap. Initially, I recommended continued local wound care with mechanical debridement and topical treatment/dressings at the discretion of Dr. Evans. Questions were invited and answered to the best of my ability. The patient has family expressed understanding and agreement with the proposed plan. We will continue to monitor the patient while in the hospital. Thank you for allowing me to participate in the care of this patient. Timi Mata D.O. [facility]
[2019-05-02] MEDS ORDERED: DEXTROSE 10 % IN WATER 250 ML BAG IV STA (20:19)
[2019-05-02 21:03] LABS: Glucose,Whole Blood 179 mg/dL (75-99)
[2019-05-02] MEDS: ATORVASTATIN 40 MG TAB PO SCH (21:27)
[2019-05-02] MEDS: CLOPIDOGREL 75 MG TAB PO SCH (21:27)
[2019-05-02] MEDS ORDERED: LEVOFLOXACIN 250MG-D5W PMX 250 MG in DEXTROSE/WATER 1 50ML.BAG IVPB SCH (22:00)
--- NOTE | 2019-05-02 22:39 | P.CONS ---
History of Present Illness - Reason for Consult Consult date: 05/02/19 Left leg wound and cellulitis Requesting physician: Abisai Montana - Chief Complaint Left leg wound pain and swelling x 1 week - History of Present Illness Patient is a 78-year-old male who did injure his left leg about 2 weeks ago while trying to get out of the boat with resulting laceration for the patient was evaluated at [facility] ER and the patient did have a wound that was stretched out after removal of the stitches a week later patient did have a Wound at the left leg that has been taken care by his primary care physician however, over the last few days her the patient noticed more swelling redness and some dull aching pain to the left leg area intensity in 2-3 out of 10 and no radiation the patient did have some yellowish drainage from the wound as well he did have some chills but denies high-grade fever with concern for worsening infection the patient presented to [facility] ER patient did have lower extremity Doppler was negative for DVT x-rays of the left tibia and fibula has been negative for any fracture patient did well local wound culture of pain he did receive a dose of Rocephin and subsequently was started on Levaquin because of his penicillin ALLERGY and infection disease was consulted for further recommendation regarding antibiotic therapy Review of Systems CONSTITUTIONAL: Positive for weakness. Chills but denies high-grade Fever EYES: No complaint. ENT:No complaint. RESPIRATORY: No complaint. CARDIOVASCULAR: No complaint. GENITOURINARY: No complaint. GASTROINTESTINAL: No complaint. MUSCULOSKELETAL: As per history of present illness INTEGUMENTARY: As per history of present illness PSYCHOLOGICAL: No complaint. ENDOCRINE: No complaint. NEUROLOGIC: No complaint. Past Medical History Past Medical History: COPD, Diabetes Mellitus, Hyperlipidemia, Hypertension History of Any Multi-Drug Resistant Organisms: None Reported Past Surgical History: Cholecystectomy, Coronary Bypass/CABG Additional Past Surgical History / Comment(s): Muscle flap over chest, Bilateral vein stripping, Bilateral chordids cleaned. Past Anesthesia/Blood Transfusion Reactions: No Reported Reaction Past Psychological History: No Psychological Hx Reported Smoking Status: Former smoker Past Alcohol Use History: Occasional Past Drug Use History: None Reported - Past Family History Father Family Medical History: Diabetes Mellitus Medications and Allergies Home Medications Medication Instructions Recorded Confirmed Type Glimepiride [Amaryl] 4 mg PO BID 12/16/15 05/01/19 History Metoprolol Succinate [Toprol XL] 100 mg PO DAILY 12/16/15 05/01/19 History Albuterol Sulfate [Proair Hfa] 1 - 2 puff INHALATION Q6HR PRN 05/01/19 05/01/19 History Allopurinol [Zyloprim] 100 mg PO DAILY 05/01/19 05/01/19 History Atorvastatin Calcium [Lipitor] 40 mg PO HS 05/01/19 05/01/19 History Clopidogrel Bisulfate [Plavix] 75 mg PO HS 05/01/19 05/01/19 History Furosemide [Lasix] 20 mg PO DAILY PRN 05/01/19 05/01/19 History Gabapentin [Neurontin] 100 mg PO TID 05/01/19 05/01/19 History Lisinopril 20 mg PO HS 05/01/19 05/01/19 History metFORMIN HCL [Glucophage] 500 mg PO BID 05/01/19 05/01/19 History Allergies Allergy/AdvReac Type Severity Reaction Status Date / Time iodine Allergy Rash/Hives Verified 05/01/19 18:02 Penicillins Allergy Rash/Hives Verified 05/01/19 18:02 Physical Exam Vitals: Vital Signs Temp Pulse Pulse Resp BP BP Pulse Ox 05/02/19 07:49 56 L 16 05/02/19 07:39 54 L 16 05/02/19 07:06 97.3 F L 59 L 16 153/78 93 L 05/01/19 20:25 97.9 F 53 L 16 157/72 92 L 05/01/19 20:02 97.1 F L 16 L 52 H 96 05/01/19 18:48 98.6 F 05/01/19 16:41 97.4 F L 53 L 18 172/75 98 Intake and Output 05/01/19 05/02/19 05/02/19 22:59 06:59 14:59 Other: # Voids 1 Weight 108.862 kg GENERAL DESCRIPTION: An elderly male lying in bed, no distress. No tachypnea or accessory muscle of respiration use. HEENT: Shows Pallor , no scleral icterus. Oral mucous membrane is dry. No pharyngeal erythema or thrush NECK: Trachea central, no thyromegaly. LUNGS: Unlabored breathing. Clear to auscultation anteriorly. No wheeze or crackle. HEART: S1, S2, regular rate and rhythm. No loud murmur ABDOMEN: Soft, no tenderness , guarding or rigidity, no organomegaly EXTREMITIES: Left anterior leg covered with a wound with slough tissue at the base the surrounding swelling redness tender to touch but no foul-smelling drainage. SKIN: No rash, no masses palpable. NEUROLOGICAL: The patient is awake, alert, oriented x3, mood and affect normal. Results CBC & Chem 7: 05/02/19 09:04 05/02/19 14:41 Labs: Abnormal Lab Results - Last 24 Hours (Table) 05/01/19 05/01/19 05/02/19 Range/Units 18:11 20:36 02:35 Potassium 5.5 H (3.5-5.1) mmol/L BUN 28 H (9-20) mg/dL Creatinine 1.97 H (0.66-1.25) mg/dL Glucose 144 H (74-99) mg/dL POC Glucose (mg/dL) 127 H (75-99) mg/dL Urine Protein Trace H (Negative) 05/02/19 05/02/19 Range/Units 07:03 09:04 Potassium 6.5 H* (3.5-5.1) mmol/L BUN 23 H (9-20) mg/dL Creatinine 1.77 H (0.66-1.25) mg/dL Glucose 221 H (74-99) mg/dL POC Glucose (mg/dL) 141 H (75-99) mg/dL Urine Protein (Negative) Microbiology - Last 24 Hours (Table) 05/01/19 18:40 Gram Stain - Preliminary Leg - Left Wound Culture - Preliminary Assessment and Plan Assessment: 1-patient with acute left leg wound traumatic now with evidence of secondary cellulitis likely from gram-positive skin lurdes is likely gram-negative infection 2-patient with penicillin ALLERGY that limit the number of antibiotic safe to use 3-patient with elevated creatinine and high risk of nephrotoxicity from the vancomycin Plan: 1-local wound care with them and honey follow the moist dressing and mild compression dressing daily 2- daptomycin 500 mg daily on waiting for the cultures to finalize we will follow on clinical condition and culture to further adjust medication if needed Thank you for this consultation will follow this patient along with you Time with Patient: Greater than 30
[2019-05-02] MEDS: DAPTOmycin 500 MG in SODIUM CHLORIDE 0.9% 50 ML IVPB SCH (23:32)
[2019-05-03] MEDS: LEVOFLOXACIN 250 MG TAB PO SCH (05:38)
[2019-05-03 07:00] LABS: Glucose,Whole Blood 191 mg/dL (75-99)
[2019-05-03] MEDS: INSULIN ASPART (NovoLOG) 100 UNIT/ML VIAL SQ SCH ×4 (07:02→21:27)
[2019-05-03 07:15] LABS: Basophils # (A) 0.1 k/uL (0-0.2); Basophils % (A) 1 %; Eosinophils # (A) 0.3 k/uL (0-0.7); Eosinophils % (A) 4 %; HCT 46.5 % (39.0-53.0); HGB 14.8 gm/dL (13.0-17.5); Lymphocytes # (A) 1.6 k/uL (1.0-4.8); Lymphocytes % (A) 23 %; MCH 31.1 pg (25.0-35.0); MCHC 31.9 g/dL (31.0-37.0); MCV 97.4 fL (80.0-100.0); Mean Platelet Volume 9.3; Monocytes # (A) 0.4 k/uL (0-1.0); Monocytes % (A) 5 %; Neutrophils # (A) 4.5 k/uL (1.3-7.7); Neutrophils % (A) 65 %; Platelet Count 198 k/uL (150-450); RBC 4.77 m/uL (4.30-5.90); RDW 14.5 % (11.5-15.5)
[2019-05-03] MEDS: ALBUTEROL NEBULIZED 2.5 MG/3 ML INHALATION PRN (08:29)
[2019-05-03] MEDS: METOPROLOL SUCCINATE (ER) 100 MG TAB.ER.24H PO SCH (08:45)
[2019-05-03] MEDS: ALLOPURINOL 100 MG TAB PO SCH (08:45)
[2019-05-03] MEDS: HEPARIN SODIUM,PORCINE 5,000 UNIT/ML 1 ML VIAL SQ SCH ×2 (08:45→21:27)
[2019-05-03] MEDS: GABAPENTIN 100 MG CAP PO SCH ×3 (08:45→21:27)
--- NOTE | 2019-05-03 09:07 | P.PN ---
Subjective Patient is seen in follow-up for acute kidney injury. Creatinine was 1.97 on admission and is down to 1.77 as of yesterday. Potassium was also high at 6.5 which was medically treated. Admits to good urine output. No vomiting or diarrhea. No chest pain or shortness of breath. Vital signs are stable. General: The patient appeared well nourished and normally developed. HEENT: Head exam is unremarkable. Neck is without jugular venous distension. LUNGS: Lungs are clear to auscultation and percussion. Breath sounds decreased. HEART: Rate and Rhythm are regular. First and second heart sounds normal. No murmurs, rubs or gallops. ABDOMEN: Abdominal exam reveals normal bowel sounds. Non-tender and non- distended. No evidence of peritonitis. EXTREMITITES: No clubbing, cyanosis, or edema. Objective - Vital Signs Vital signs: Vital Signs Temp 98.2 F 05/03/19 04:00 Pulse 68 05/03/19 08:39 Resp 18 05/03/19 08:30 BP 134/72 05/03/19 04:00 Pulse Ox 95 05/03/19 04:00 Intake & Output 05/02/19 05/03/19 05/03/19 18:59 06:59 18:59 Intake Total 780 360 Output Total 325 500 Balance 455 -500 360 Weight 108.862 kg 108.9 kg Intake: Oral 780 360 Output: Urine 500 Post Void Residual 325 Other: # Voids 5 - Labs CBC & Chem 7: 05/03/19 06:36 05/02/19 14:41 Labs: Abnormal Lab Results - Last 24 Hours (Table) 05/02/19 05/02/19 05/02/19 Range/Units 09:04 11:55 14:41 Potassium 6.5 H* 5.8 H (3.5-5.1) mmol/L BUN 23 H (9-20) mg/dL Creatinine 1.77 H (0.66-1.25) mg/dL Glucose 221 H (74-99) mg/dL POC Glucose (mg/dL) 244 H (75-99) mg/dL 05/02/19 05/03/19 Range/Units 21:01 06:58 Potassium (3.5-5.1) mmol/L BUN (9-20) mg/dL Creatinine (0.66-1.25) mg/dL Glucose (74-99) mg/dL POC Glucose (mg/dL) 179 H 191 H (75-99) mg/dL Microbiology - Last 24 Hours (Table) 05/01/19 18:05 Blood Culture - Preliminary Blood No Growth after 24 hours Assessment and Plan Plan: Assessment: 1. Acute kidney injury mostly prerenal improving with IV hydration. Creatinine was 1.97 on admission and 1.77 as of yesterday. UA reveals trace proteinuria. No evidence of urinary retention. Unknown baseline creatinine. Will need to establish baseline renal function. No evidence of hydronephrosis noted on kidney ultrasound. 2. Left lower extremity wound maintained on IV antibiotics. No evidence of DVT. 3. Hyperkalemia secondary to acute kidney injury and lisinopril. No evidence of acidosis. Blood sugar is not too elevated. Improved with medical management. 4. Diabetes mellitus. 5. Benign hypertension. Controlled. 6. Questionable mass in the right kidney. This will need to be further evaluated in the near future. Plan: Discontinue IV fluids with bicarb. Start normal saline at 50 mL an hour. Low potassium diet. Avoid nephrotoxins. Continue to hold lisinopril. Continue to monitor renal function and urine output. Morning labs pending.
[2019-05-03 09:22] LABS: Calcium 9.4 mg/dL (8.4-10.2); Potassium 5.5 mmol/L (3.5-5.1)
[2019-05-03] MEDS ORDERED: DEXTROSE 50% SYRINGE 50 ML IVP STA (09:28)
[2019-05-03] MEDS ORDERED: INSULIN REGULAR 100 UNIT/ML VIAL IV ONE (09:28)
[2019-05-03] MEDS ORDERED: DEXTROSE 10 % IN WATER 250 ML IV STA (09:31)
[2019-05-03] MEDS: DEXTROSE 5% IN WATER 1,000 ML with SODIUM BICARB (1 MEQ/ML) 50 ML IV SCH (09:35)
--- NOTE | 2019-05-03 11:25 | P.PN ---
Subjective Progress Note Date: 05/03/19 This patient is a 78-year-old male past medical history of COPD, diabetes type 2, hypertension, hyperlipidemia, history of CABG currently taking Plavix who sustained an injury to the left lower leg about 2 weeks ago. The patient [place], and sustained a laceration. He states he was evaluated at [facility] following injury, and sutures are placed. Patient states his sutures were removed at his primary care physician's office 2 days later. He states he was never given oral antibiotics. He states he started to notice drainage and erythema of the area, and he also noticed an odor from the area, therefore he was evaluated at an urgent care. He states the provider at the urgent care directed the patient to the emergency department for evaluation. The patient was seen to [facility] ER and placed on IV antibiotics, and was subsequently admitted to internal medicine with consults placed to infectious disease and orthopedic surgery. 05/03/19: Patient is examined bedside this morning. He states he feels well today. He denies any increase in pain in the left lower extremity. He states he recently took a shower. He is tolerating his diet well. He denies chest pain, shortness of breath, nausea, vomiting, fevers, or chills. Objective - Vital Signs Vital signs: Vital Signs Temp 97.6 F 05/03/19 08:00 Pulse 68 05/03/19 08:39 Resp 18 05/03/19 08:30 BP 140/67 05/03/19 08:00 Pulse Ox 92 L 05/03/19 08:00 Intake & Output 05/02/19 05/03/19 05/03/19 18:59 06:59 18:59 Intake Total 780 360 Output Total 325 500 Balance 455 -500 360 Weight 108.862 kg 108.9 kg Intake: Oral 780 360 Output: Urine 500 Post Void Residual 325 Other: # Voids 5 - Exam On examination, the patient is sitting up in bed in no apparent distress. He is alert and orientated x3. Dressing is taken down and reveals a wound of the pretibial area with active yellow drainage, similar in appearance to yesterday. The wound is foul-smelling. The wound appears to be about 4-5 cm. There is barton rrounding erythema and tenderness. There is no fluctuance. There is no tenderness on palpation of the calf. Patient has full range of motion of the ankle and toes. Sensation is intact to light touch of the plantar and dorsal foot, as well as the dorsal first webspace. Dorsalis pedis pulse palpable. Brisk capillary refill of all toes. - Labs CBC & Chem 7: 05/03/19 06:36 05/03/19 06:36 Labs: Abnormal Lab Results - Last 24 Hours (Table) 05/02/19 05/02/19 05/02/19 Range/Units 11:55 14:41 21:01 Potassium 5.8 H (3.5-5.1) mmol/L Creatinine (0.66-1.25) mg/dL Glucose (74-99) mg/dL POC Glucose (mg/dL) 244 H 179 H (75-99) mg/dL 05/03/19 05/03/19 Range/Units 06:36 06:58 Potassium 5.5 H (3.5-5.1) mmol/L Creatinine 1.56 H (0.66-1.25) mg/dL Glucose 183 H (74-99) mg/dL POC Glucose (mg/dL) 191 H (75-99) mg/dL Microbiology - Last 24 Hours (Table) 05/01/19 18:05 Blood Culture - Preliminary Blood No Growth after 24 hours Assessment and Plan Assessment: Infected wound left anterior lower leg, with surrounding cellulitis Plan: - Supportive treatment is recommended at this time. There is no operative intervention planned at this time. - Recommended local wound care, and continuation of IV antibiotics per infectious disease and internal medicine. - Wound cultures pending. - We will continue to follow this patient peripherally. We will re-assess the need for operative intervention if his condition worsens. Patient discussed with Dr. Mata.
[2019-05-03 11:52] LABS: Glucose,Whole Blood 124 mg/dL (75-99)
[2019-05-03] MEDS: SODIUM CHLORIDE 0.9% 1,000 ML IV SCH (16:32)
[2019-05-03 16:57] LABS: Glucose,Whole Blood 132 mg/dL (75-99)
--- NOTE | 2019-05-03 20:34 | PN ---
PROGRESS NOTE DATE OF SERVICE: 05/03/2019 This 78-year-old gentleman who was admitted with significant cellulitis infection and diabetic foot, also had hyperkalemia and as well as renal failure. The patient was given Kayexalate and as well as insulin glucose regimen, transferred to telemetry at this time. The venous Doppler of the leg was also done which showed evidence of no DVT. Orthopedic surgery following the patient closely regarding the leg infection and is being closely monitored at this time. A slightly more purulence is noted from the wound today. No chest pain. No palpitations. No fever. The cultures are negative so far. PAST MEDICAL HISTORY: Reviewed. REVIEW OF SYSTEMS: CARDIOVASCULAR SYSTEM: No angina or palpitations. Respirations: No cough. GI no nausea or vomiting. : No dysuria. Central nervous system: No numbness or weakness. CURRENT MEDICATIONS: Reviewed and include: 1. Tylenol 650 q.6h p.r.n. 2. [place] 5 mg q.6h p.r.n. 3. Ventolin 2.5 q.6h p.r.n. 4. Zyloprim 100 mg daily. 5. Xanax 0.25 t.i.d. 6. Plavix 75 mg p.o. q.h.s. 7. Daptomycin 500 mg IV daily. 8. Neurontin 100 mg p.o. t.i.d. 9. Heparin 5000 subcu b.i.d. 10.Dilaudid 0.5 q.3 p.r.n. 11.NovoLog q.a.c. and q.h.s. 12.Levaquin 250 mg p.o. daily. 13.Toprol-XL. 14.Morphine sulfate. 15.Ultram. PHYSICAL EXAM: Patient is alert, oriented x3. Pulse 59, blood pressure 160/77, respiration 18, temperature 99.2, pulse ox 94% on room air. HEENT: Conjunctivae normal. Oral mucosa moist. NECK is no jugular venous distention. No carotid bruit. No lymph node enlargement. Cardiovascular system: S1, S2 muffled. Respirations: Breath sounds diminished in the bases. No rhonchi. No crackles. ABDOMEN: Soft, nontender. No mass palpable. LEGS: Significant swelling and erythema. Infectious cellulitis infected wound on the left leg present, tender. Pulses felt normally. NERVOUS SYSTEM: Higher functions as mentioned earlier. Moves all four limbs. No focal motor or sensory deficits. LYMPHATICS: No lymph nodes palpable in the neck, axillae or groin. JOINTS: No active deforming arthropathy. LABS: CBC within normal limits. Sodium 140. Potassium 5.5, creatinine is 1.55. Yesterday, potassium 5.8, creatinine was 1.77. ASSESSMENT: 1. Cellulitis, infected wound on the left chacko area with failure of outpatient treatment. 2. Hyperkalemia, severe secondary to renal failure, improving. 3. Increased creatinine, possibly chronic kidney stage 3 with some acute renal failure component due to acute tubular necrosis and multifactorial. 4. Diabetes mellitus type 2. 5. Hypertension. 6. Hyperlipidemia. 7. Chronic obstructive pulmonary disease. 8. History of coronary artery disease, coronary artery bypass grafting. 9. Cholecystectomy. 10.Remote history of nicotine dependence. 11.Obesity with body mass index of 32.5. RECOMMENDATIONS AND DISCUSSION: This 78-year-old gentleman who presented with multiple complex medical issues, we will monitor the patient closely. Continue the current medications, management and symptomatic treatment. Otherwise, at this time, I recommend continue with current medications. Monitor electrolytes closely. Otherwise, continue the antibiotics. Closely follow with Infectious Disease and Orthopedic surgery. The patient might require debridement down the line and further recommendations to follow. Prognosis guarded. Discussed with the patient and family at length. MMODL / IJN: [id number] /
[2019-05-03 21:21] LABS: Glucose,Whole Blood 145 mg/dL (75-99)
[2019-05-03] MEDS: CLOPIDOGREL 75 MG TAB PO SCH (21:27)
[2019-05-03] MEDS: DAPTOmycin 500 MG in SODIUM CHLORIDE 0.9% 50 ML IVPB SCH (22:39)
[2019-05-04 06:31] LABS: Glucose,Whole Blood 156 mg/dL (75-99)
[2019-05-04] MEDS: LEVOFLOXACIN 250 MG TAB PO SCH (06:47)
[2019-05-04] MEDS: INSULIN ASPART (NovoLOG) 100 UNIT/ML VIAL SQ SCH ×4 (06:47→21:17)
[2019-05-04 06:48] LABS: Basophils # (A) 0.1 k/uL (0-0.2); Basophils % (A) 1 %; Eosinophils # (A) 0.3 k/uL (0-0.7); Eosinophils % (A) 5 %; HCT 45.1 % (39.0-53.0); HGB 14.6 gm/dL (13.0-17.5); Lymphocytes # (A) 1.6 k/uL (1.0-4.8); Lymphocytes % (A) 27 %; MCHC 32.3 g/dL (31.0-37.0); Mean Platelet Volume 9.5; Monocytes # (A) 0.3 k/uL (0-1.0); Monocytes % (A) 5 %; Neutrophils # (A) 3.5 k/uL (1.3-7.7); Neutrophils % (A) 59 %; Platelet Count 186 k/uL (150-450); RDW 14.7 % (11.5-15.5); WBC 5.9 k/uL (3.8-10.6)
[2019-05-04 06:51] LABS: Calcium 9.2 mg/dL (8.4-10.2); Magnesium 1.5 mg/dL (1.6-2.3); Potassium 5.3 mmol/L (3.5-5.1)
[2019-05-04] MEDS: HEPARIN SODIUM,PORCINE 5,000 UNIT/ML 1 ML VIAL SQ SCH ×2 (09:24→21:17)
[2019-05-04] MEDS: ALLOPURINOL 100 MG TAB PO SCH (09:24)
[2019-05-04] MEDS: METOPROLOL SUCCINATE (ER) 100 MG TAB.ER.24H PO SCH (09:24)
[2019-05-04] MEDS: GABAPENTIN 100 MG CAP PO SCH ×3 (09:24→21:17)
--- NOTE | 2019-05-04 10:17 | P.PN ---
Subjective Patient is seen in follow-up for acute kidney injury. Creatinine was 1.97 on admission and is down to 1.48 today. Potassium was also high at 6.5 which was medically treated. It is 5.3 today. Admits to good urine output. No vomiting or diarrhea. No chest pain or shortness of breath. Vital signs are stable. General: The patient appeared well nourished and normally developed. HEENT: Head exam is unremarkable. Neck is without jugular venous distension. LUNGS: Lungs are clear to auscultation and percussion. Breath sounds decreased. HEART: Rate and Rhythm are regular. First and second heart sounds normal. No murmurs, rubs or gallops. ABDOMEN: Abdominal exam reveals normal bowel sounds. Non-tender and non- distended. No evidence of peritonitis. EXTREMITITES: No clubbing, cyanosis, or edema. Objective - Vital Signs Vital signs: Vital Signs Temp 98 F 05/04/19 09:30 Pulse 65 05/04/19 09:30 Resp 16 05/04/19 09:30 BP 124/72 05/04/19 09:30 Pulse Ox 92 L 05/04/19 09:30 Intake & Output 05/03/19 05/04/19 05/04/19 18:59 06:59 18:59 Intake Total 840 480 Output Total 700 1250 Balance 140 -1250 480 Weight 107.2 kg Intake: Oral 840 480 Output: Urine 700 1250 Other: # Voids 1 1 - Labs CBC & Chem 7: 05/04/19 05:35 05/04/19 05:35 Labs: Abnormal Lab Results - Last 24 Hours (Table) 05/03/19 05/03/19 05/03/19 Range/Units 11:49 16:55 21:20 Potassium (3.5-5.1) mmol/L Creatinine (0.66-1.25) mg/dL Glucose (74-99) mg/dL POC Glucose (mg/dL) 124 H 132 H 145 H (75-99) mg/dL Magnesium (1.6-2.3) mg/dL 05/04/19 05/04/19 Range/Units 05:35 06:30 Potassium 5.3 H (3.5-5.1) mmol/L Creatinine 1.48 H (0.66-1.25) mg/dL Glucose 155 H (74-99) mg/dL POC Glucose (mg/dL) 156 H (75-99) mg/dL Magnesium 1.5 L (1.6-2.3) mg/dL Microbiology - Last 24 Hours (Table) 05/01/19 18:05 Blood Culture - Preliminary Blood No Growth after 48 hours 05/01/19 18:40 Gram Stain - Preliminary Leg - Left Wound Culture - Preliminary Presumptive Staph aureus Assessment and Plan Plan: Assessment: 1. Acute kidney injury mostly prerenal improving with IV hydration. Creatinine was 1.97 on admission and is 1.48 today. UA reveals trace proteinuria. No evidence of urinary retention. Unknown baseline creatinine. Will need to establish baseline renal function. No evidence of hydronephrosis noted on kidney ultrasound. 2. Left lower extremity wound maintained on IV antibiotics. No evidence of DVT. 3. Hyperkalemia secondary to acute kidney injury and lisinopril. No evidence of acidosis. Blood sugar is not too elevated. Improved with medical management. 4. Diabetes mellitus. 5. Benign hypertension. Controlled. 6. Questionable mass in the right kidney. This will need to be further evaluated in the near future. Plan: Hep-Lock IV fluids. Low potassium diet. Avoid nephrotoxins. Continue to hold lisinopril. Continue to monitor renal function and urine output. Magnesium was also a little low and is being replaced.
[2019-05-04] MEDS: MAGNESIUM SULFATE-D5W PMX 1 GM in DEXTROSE/WATER 1 100ML.BAG IVPB SCH ×3 (10:54→14:27)
[2019-05-04 12:12] LABS: Glucose,Whole Blood 160 mg/dL (75-99)
[2019-05-04 17:03] LABS: Glucose,Whole Blood 164 mg/dL (75-99)
--- NOTE | 2019-05-04 17:47 | P.PN ---
Subjective Progress Note Date: 05/04/19 This patient is a 78-year-old male past medical history of COPD, diabetes type 2, hypertension, hyperlipidemia, history of CABG currently taking Plavix who sustained an injury to the left lower leg about 2 weeks ago. The patient states that [place], and sustained a laceration. He states he was evaluated at [facility] following injury, and sutures are placed. Patient states his sutures were removed at his primary care physician's office 2 days later. He states he was never given oral antibiotics. He states he started to notice drainage and erythema of the area, and he also noticed an odor from the area, therefore he was evaluated at an urgent care. He states the provider at the urgent care directed the patient to the emergency department for evaluation. The patient was seen to [facility] ER and placed on IV antibiotics, and was subsequently admitted to internal medicine with consults placed to infectious disease and orthopedic surgery. 05/04/19: Patient is examined bedside this morning. His family is bedside. He continues to feel well. He denies any increases in pain in the left lower extremity. He is ambulating without pain or issues. He is tolerating his diet well. He denies fevers, chills, nausea, vomiting. Vital signs stable. Objective - Vital Signs Vital signs: Vital Signs Temp 97.7 F 05/04/19 16:00 Pulse 65 05/04/19 16:00 Resp 18 05/04/19 16:00 BP 146/60 05/04/19 16:00 Pulse Ox 94 L 05/04/19 16:00 Intake & Output 05/03/19 05/04/19 05/04/19 18:59 06:59 18:59 Intake Total 840 840 Output Total 700 1250 950 Balance 140 -1250 -110 Weight 107.2 kg Intake: Oral 840 840 Output: Urine 700 1250 950 Other: # Voids 1 1 1 - Exam On examination, the patient is sitting up in the bedside chair in no apparent distress. He is alert and orientated x3. His family is bedside. SYDNIE wrap and overlying dressing is taken down and reveals a shallow horse shoe shaped wound of the mid-tibia area with active yellow drainage, no pus. The wound is foul- smelling. There is surrounding erythema and tenderness. There is no fluctuance. There appears to be small areas of darkened skin in the central portion of the wound, although no florencio areas of necrosis. There is no te nderness on palpation of the calf. Patient has full range of motion of the ankle and toes. Sensation is intact to light touch of the plantar and dorsal foot, as well as the dorsal first webspace. Dorsalis pedis pulse palpable. Brisk capillary refill of all toes. - Labs CBC & Chem 7: 05/04/19 05:35 05/04/19 05:35 Labs: Abnormal Lab Results - Last 24 Hours (Table) 05/03/19 05/04/19 05/04/19 Range/Units 21:20 05:35 06:30 Potassium 5.3 H (3.5-5.1) mmol/L Creatinine 1.48 H (0.66-1.25) mg/dL Glucose 155 H (74-99) mg/dL POC Glucose (mg/dL) 145 H 156 H (75-99) mg/dL Magnesium 1.5 L (1.6-2.3) mg/dL 05/04/19 05/04/19 Range/Units 12:07 16:55 Potassium (3.5-5.1) mmol/L Creatinine (0.66-1.25) mg/dL Glucose (74-99) mg/dL POC Glucose (mg/dL) 160 H 164 H (75-99) mg/dL Magnesium (1.6-2.3) mg/dL Microbiology - Last 24 Hours (Table) 05/01/19 18:05 Blood Culture - Preliminary Blood No Growth after 48 hours 05/01/19 18:40 Gram Stain - Preliminary Leg - Left Wound Culture - Preliminary Presumptive Staph aureus Assessment and Plan Assessment: Left lower leg superficial wound infection with surrounding cellulitis Plan: - Recommended we continue with supportive treatment at this time. No operative intervention is planned at this time. - Local wound care and IV antibiotics per infectious disease and internal medicine. - Wound cultures currently showing staph aureus. - We will continue to follow this patient while he remains inpatient. We will continue to make recommendations as needed. Patient discussed with Dr. Mata.
[2019-05-04 20:34] LABS: Glucose,Whole Blood 194 mg/dL (75-99)
[2019-05-04] MEDS: CLOPIDOGREL 75 MG TAB PO SCH (21:17)
[2019-05-04] MEDS: DAPTOmycin 500 MG in SODIUM CHLORIDE 0.9% 50 ML IVPB SCH (23:07)
--- NOTE | 2019-05-04 23:42 | PN ---
PROGRESS NOTE DATE OF SERVICE: 05/04/2019 This 78-year-old gentleman was admitted with significant cellulitis and wound of the left chacko area also had hyperkalemia and renal failure. Patient being closely monitored. Orthopedic surgery is evaluating the patient. No chest pain. No palpitations. No fever. EXAM: Alert and oriented times three. Pulse is 65. Blood pressure 140/60, respiration 16, temperature 97.7, pulse ox 94% on room air. HEENT: Conjunctivae normal. NECK: No JVD. CARDIOVASCULAR: S1, S2 muffled. RESPIRATIONS: Breath sounds diminished in the bases. A few scattered rhonchi. ABDOMEN is soft, nontender. NERVOUS SYSTEM: No focal deficits. LABORATORY DATA: CBC within normal limits. Potassium 5.3, creatinine is 1.48. ASSESSMENT: 1. Cellulitis, infected wound on the left chacko area with failure of outpatient treatment. 2. Hyperkalemia, severe secondary to renal failure, improving. 3. Increased creatinine, possibly chronic kidney disease stage 3 with some acute renal failure component due to acute tubular necrosis multifactorial. 4. Diabetes mellitus type 2. 5. Hypertension. 6. Hyperlipidemia. 7. Chronic obstructive pulmonary disease. 8. History of coronary artery disease/coronary artery bypass grafting. 9. Cholecystectomy. 10.Remote history of nicotine dependence. 11.Obesity with body mass index of 32.5. RECOMMENDATIONS AND DISCUSSION: Recommend to continue current medications, monitoring, symptomatic treatment. Otherwise at this time, I recommend continue with current medications. Repeat labs. We will supplement magnesium. Otherwise, closely follow with Infectious Disease. Further recommendations to follow. MMODL / IJN: [id number] /
--- NOTE | 2019-05-05 01:36 | PN ---
PROGRESS NOTE DATE OF SERVICE: 05/04/2019. REASON FOR FOLLOWUP: Left leg wound with secondary cellulitis. INTERVAL HISTORY: The patient is currently afebrile. Patient has been breathing comfortably. Denies having any chest pain, or any cough or abdominal pain or any worsening pain to the left leg wound area. PHYSICAL EXAMINATION: Blood pressure 163/70 with a pulse of 70, temperature 98.2. He is 98% on room air. General description is an elderly male lying in bed in no distress. Respiratory system: Unlabored breathing. Clear to auscultation anteriorly. Heart S1, S2. Regular rate and rhythm. Abdomen soft, no tenderness. Left leg is currently with minimal slough tissue, surrounding redness improved with some swelling persists. LABS: Hemoglobin is 14, white count 5.9, BUN of 19, creatinine 1.48. Wound culture finalized with MSSA, blood culture remains to be negative. DIAGNOSTIC IMPRESSION AND PLAN: Patient with left leg wound, traumatic wound with secondary cellulitis. Cultures with MSSA. Local wound care to continue with [facility]. Antibiotic was switched to cefazolin 2 g q.8 hours. The patient does have a history of PENICILLIN ALLERGY, but no history of anaphylaxis. Using cephalosporin will be safe. His questions and concerns were answered. MMODL / IJN: [id number] /
[2019-05-05 06:06] LABS: Glucose,Whole Blood 154 mg/dL (75-99)
[2019-05-05] MEDS: INSULIN ASPART (NovoLOG) 100 UNIT/ML VIAL SQ SCH ×4 (06:16→21:47)
[2019-05-05] MEDS: LEVOFLOXACIN 250 MG TAB PO SCH (06:17)
[2019-05-05] MEDS: GABAPENTIN 100 MG CAP PO SCH ×3 (08:59→21:47)
[2019-05-05] MEDS: ALLOPURINOL 100 MG TAB PO SCH (08:59)
[2019-05-05] MEDS: METOPROLOL SUCCINATE (ER) 100 MG TAB.ER.24H PO SCH (09:00)
[2019-05-05] MEDS: HEPARIN SODIUM,PORCINE 5,000 UNIT/ML 1 ML VIAL SQ SCH ×2 (09:00→21:47)
--- NOTE | 2019-05-05 12:01 | PN ---
PROGRESS NOTE Patient is seen for followup for acute kidney injury. His renal function has improved since admission with creatinine down to 1.4 from 1.97. The patient wants to go home today. PHYSICAL EXAMINATION: On examination, blood pressure 157/72, heart rate 62 per minute. He is afebrile. EXAMINATION OF THE HEART: S1, S2. EXAMINATION OF THE LUNGS: Bilateral breath sounds are heard. Abdomen is soft, nontender. Examination of lower extremities shows left leg currently wrapped. No significant edema noted in the right lower extremity except for edema in the foot. LABS: Labs are not available from today. Potassium was 5.3 yesterday. Creatinine 1.48. ASSESSMENT: 1. Acute kidney injury, acute tubular necrosis, currently improved. Check labs today. There was a component of volume depletion and prerenal acute kidney injury as well, which has improved with IV hydration. 2. Left lower extremity wound, maintained on antibiotics. 3. Hyperkalemia associated with acute kidney injury and SYDNIE inhibitors. Repeat labs today. 4. Type 2 diabetes. 5. Hypertension, controlled. 6. Questionable mass in the right kidney, which will need further evaluation as outpatient. PLAN: Continue to hold off on SYDNIE inhibitors. Check labs today. Continue antibiotics. Followup as outpatient post discharge. MMODL / IJN: [id number] /
[2019-05-05 12:04] LABS: Glucose,Whole Blood 190 mg/dL (75-99)
[2019-05-05] MEDS ORDERED: LIDOCAINE 1% INJ 10MG/ML (20 ML MDV) SQ ONE (12:15)
[2019-05-05 12:30] LABS: Calcium 9.6 mg/dL (8.4-10.2); Potassium 5.9 mmol/L (3.5-5.1)
[2019-05-05] MEDS: COLLAGENASE 250 UNIT/GM OINTMENT 30 GM TUBE TOPICAL SCH (14:03)
--- NOTE | 2019-05-05 15:26 | P.PN ---
Subjective Progress Note Date: 05/05/19 Principal diagnosis: This is a 78-year-old male who was admitted with cellulitis surrounding the wound of his left chacko that occurred approximately 2 weeks ago and is being closely monitored. Orthopedic surgery has evaluated the patient requiring no surgical intervention at this time. Infectious disease is following the patient as well as nephrology. Current creatinine is 1.55. left leg wound is currently being treated with Santyl and [place] wraps. The surrounding tissue swelling has improved. Patient denies any chest pain, shortness of breath, or palpitations at this time. Patient is afebrile. Patient denies any nausea or vomiting and has been tolerating diet. Patient is currently on Cefzil and 2 g every 8 hours per infectious disease recommendations. Wound cultures thus far show Staphylococcus aureus. Guarded prognosis. Objective - Vital Signs Vital signs: Vital Signs Temp 98.3 F 05/05/19 11:00 Pulse 62 05/05/19 11:00 Resp 18 05/05/19 11:00 BP 157/72 05/05/19 11:00 Pulse Ox 95 05/05/19 11:00 Intake & Output 05/04/19 05/05/19 05/05/19 18:59 06:59 18:59 Intake Total 960 540 Output Total 950 600 Balance 10 -60 Weight 107 kg Intake: Oral 960 540 Output: Urine 950 600 Other: # Voids 1 1 - Exam Gen: This is a 78-year-old male lying in bed in no acute distress. Vital signs are stable. Temp is 98.3F, pulse is 62, respirations are 18, blood pressure is 157/72, oxygen saturation is 95% on room air HEENT: Head is atraumatic, normocephalic. Pupils equal, round. Sclerae is anicteric. NECK: Supple. No JVD. No lymphadenopathy. No thyromegaly. LUNGS: Diminished breath sounds otherwise clear to auscultation. No wheezes or rhonchi. No intercostal retractions. HEART: S1, S2 are muffled. No murmur. ABDOMEN: Soft. Bowel sounds are present. No masses. No tenderness. EXTREMITIES: No pedal edema. No calf tenderness. Left leg wound shows a decrease in redness and swelling around the wound in a horseshoe pattern. Tissue sloughing with some blood noted after irrigation and application of medical honey to the wound per infectious disease. NEUROLOGICAL: Patient is awake, alert and oriented x3. Cranial nerves 2 through 12 are grossly intact. Gait is steady - Labs CBC & Chem 7: 05/04/19 05:35 05/05/19 11:49 Labs: Abnormal Lab Results - Last 24 Hours (Table) 05/04/19 05/04/19 05/05/19 Range/Units 16:55 20:33 06:04 Potassium (3.5-5.1) mmol/L BUN (9-20) mg/dL Creatinine (0.66-1.25) mg/dL Glucose (74-99) mg/dL POC Glucose (mg/dL) 164 H 194 H 154 H (75-99) mg/dL 05/05/19 05/05/19 Range/Units 11:49 11:56 Potassium 5.9 H (3.5-5.1) mmol/L BUN 26 H (9-20) mg/dL Creatinine 1.55 H (0.66-1.25) mg/dL Glucose 194 H (74-99) mg/dL POC Glucose (mg/dL) 190 H (75-99) mg/dL Microbiology - Last 24 Hours (Table) 05/01/19 18:05 Blood Culture - Preliminary Blood No Growth after 72 hours 05/01/19 18:40 Gram Stain - Final Leg - Left Wound Culture - Final Staphylococcus aureus Staphylococcus aureus#2 Assessment and Plan Assessment: Cellulitis, infected wound on the left chacko area with failure of outpatient treatment; patient is currently on Cefazolin and will be on Santyl daily to the leg wound. Hyperkalemia, severe secondary to renal failure, improving Increased creatinine, possibly chronic kidney disease stage III with some acute renal failure, component due to acute tubular necrosis, multifactorial Diabetes mellitus type 2 Hypertension Hyperlipidemia Chronic obstructive pulmonary disease History of coronary artery disease/coronary artery bypass grafting Cholecystectomy Remote history of nicotine dependence Obesity with body mass index of 32.5 Recommendations and discussion: Recommend continue current medications, management, and symptomatically treatment. Infectious disease is following for management of antibiotic therapy. Nephrology is following. Will repeat labs in the a.m. We will naya nue to monitor vital signs and labs closely. Guarded prognosis. Further recommendations to follow.
--- NOTE | 2019-05-05 16:51 | P.PN ---
Subjective Progress Note Date: 05/05/19 Mr. Negron states the leg is doing fine. He had a bedside debridement earlier today. He denies any new issues or concerns. Objective - Vital Signs Vital signs: Vital Signs Temp 98.3 F 05/05/19 11:00 Pulse 62 05/05/19 11:00 Resp 18 05/05/19 11:00 BP 157/72 05/05/19 11:00 Pulse Ox 95 05/05/19 11:00 Intake & Output 05/04/19 05/05/19 05/05/19 18:59 06:59 18:59 Intake Total 960 540 Output Total 950 600 Balance 10 -60 Weight 107 kg Intake: Oral 960 540 Output: Urine 950 600 Other: # Voids 1 1 - Exam The dressings were opened - scant sanguinous drainage. Good (but not active) bleeding from wound edges. Yellow granular exudative tissue within the wound bed. No purulence. No strong odor. Minimal tenderness to palpation. - Labs CBC & Chem 7: 05/04/19 05:35 05/05/19 11:49 Labs: Abnormal Lab Results - Last 24 Hours (Table) 05/04/19 05/04/19 05/05/19 Range/Units 16:55 20:33 06:04 Potassium (3.5-5.1) mmol/L BUN (9-20) mg/dL Creatinine (0.66-1.25) mg/dL Glucose (74-99) mg/dL POC Glucose (mg/dL) 164 H 194 H 154 H (75-99) mg/dL 05/05/19 05/05/19 Range/Units 11:49 11:56 Potassium 5.9 H (3.5-5.1) mmol/L BUN 26 H (9-20) mg/dL Creatinine 1.55 H (0.66-1.25) mg/dL Glucose 194 H (74-99) mg/dL POC Glucose (mg/dL) 190 H (75-99) mg/dL Microbiology - Last 24 Hours (Table) 05/01/19 18:05 Blood Culture - Preliminary Blood No Growth after 72 hours 05/01/19 18:40 Gram Stain - Final Leg - Left Wound Culture - Final Staphylococcus aureus Staphylococcus aureus#2 Assessment and Plan Assessment: 1. Superficial wound infection of the left leg with surrounding cellulitis status post traumatic laceration Plan: Mr. Negron is doing quite well. The wound looks good. No formal surgical debridement planned. Recommend continuing serial debridements and local wound care. Encouraged ambulation and activity as tolerated. We will sign off at this time. Please contact us with any questions or concerns. Timi Mata D.O. [facility]
[2019-05-05 17:29] LABS: Glucose,Whole Blood 131 mg/dL (75-99)
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
[2019-05-05 21:39] LABS: Glucose,Whole Blood 281 mg/dL (75-99)
[2019-05-05] MEDS: CLOPIDOGREL 75 MG TAB PO SCH (21:47)
--- NOTE | 2019-05-05 22:50 | PN ---
PROGRESS NOTE DATE OF SERVICE: 05/05/2019. REASON FOR FOLLOWUP: Left leg wound with secondary cellulitis. INTERVAL HISTORY: The patient is currently afebrile. The patient is status post left leg wound debridement by Dr. Boland. Patient tolerated the procedure. Denies any chest pain, shortness of breath or cough. No abdominal pain or any diarrhea. PHYSICAL EXAMINATION: Blood pressure is 154/69 with a pulse of 62, temperature of 98.4. He is 94% on room air. General description is an elderly male lying in bed in no distress. Respiratory system: Unlabored breathing. Clear to auscultation anteriorly. Heart S1, S2. Regular rate. ABDOMEN: Soft, no tenderness. Left leg wound is currently clean. Some surrounding swelling and redness has improved. No drainage. LABS: BUN of 26, creatinine is 1.55. DIAGNOSTIC IMPRESSION AND PLAN: Patient with left leg wound with secondary cellulitis culture positive for MSSA. Patient history of PENICILLIN ALLERGY, so far has tolerated cephazolin without any problem. To continue local wound care with Santyl plus per vascular surgery. PLAN: To finish therapy with oral antibiotics. Continue supportive care. MMODL / IJN: [id number] /
--- NOTE | 2019-05-05 23:02 | OP ---
DATE OF SERVICE: 05/05/2019 OPERATIVE REPORT PREOPERATIVE DIAGNOSIS: Nonhealing wound, left lower extremity anterior aspect of the lower leg, measurement is 6 x 1 cm, traumatic. POSTOPERATIVE DIAGNOSIS: Nonhealing wound left lower extremity anterior aspect of the lower leg, measurement is 6 x 1 cm, traumatic. PROCEDURE PERFORMED: Wound debridement down to subcutaneous tissue and taken deep culture, removal of all devitalized tissue. DESCRIPTION OF PROCEDURE: Left leg was prepped and drapes applied in the usual sterile manner. 1% lidocaine plain infiltrated. Using knife, we excised the devitalized tissue. Underneath some bleeding was noted which was controlled by pressure. All the devitalized tissue was removed. Some of the tissue was sent for culture and sensitivity. The wound was irrigated with saline. PLAN: We will use Santyl cream and which will be changed daily and continue with IV antibiotic. Follow with you. MORGAN / JUDY: [id number] / MTDLavon
[2019-05-06 06:21] LABS: Glucose,Whole Blood 155 mg/dL (75-99)
[2019-05-06] MEDS: INSULIN ASPART (NovoLOG) 100 UNIT/ML VIAL SQ SCH ×4 (06:43→22:55)
[2019-05-06] MEDS: LEVOFLOXACIN 250 MG TAB PO SCH (06:44)
[2019-05-06 08:01] LABS: Calcium 9.3 mg/dL (8.4-10.2); Magnesium 1.6 mg/dL (1.6-2.3); Potassium 5.3 mmol/L (3.5-5.1)
[2019-05-06] MEDS: HEPARIN SODIUM,PORCINE 5,000 UNIT/ML 1 ML VIAL SQ SCH ×2 (08:35→22:54)
[2019-05-06] MEDS: METOPROLOL SUCCINATE (ER) 100 MG TAB.ER.24H PO SCH (08:35)
[2019-05-06] MEDS: ALLOPURINOL 100 MG TAB PO SCH (08:35)
[2019-05-06] MEDS: GABAPENTIN 100 MG CAP PO SCH ×3 (08:35→22:54)
[2019-05-06 11:31] VITALS: BMI 31.5
[2019-05-06 11:41] LABS: Glucose,Whole Blood 423 mg/dL (75-99)
[2019-05-06 11:53] LABS: Glucose,Whole Blood 256 mg/dL (75-99)
[2019-05-06] MEDS: COLLAGENASE 250 UNIT/GM OINTMENT 30 GM TUBE TOPICAL SCH (15:19)
--- NOTE | 2019-05-06 15:40 | P.PN ---
Subjective Progress Note Date: 05/06/19 Principal diagnosis: This is a 78-year-old male who was admitted with cellulitis surrounding the wound of his left chacko that occurred approximately 2 weeks ago and is being closely monitored. Orthopedic surgery has evaluated the patient requiring no surgical intervention at this time. Infectious disease is following the patient as well as nephrology. Current creatinine is 1.55. left leg wound is currently being treated with Santyl and Deion wraps. The surrounding tissue swelling has improved. Patient denies any chest pain, shortness of breath, or palpitations at this time. Patient is afebrile. Patient denies any nausea or vomiting and has been tolerating diet. Patient is currently on Cefzil and 2 g every 8 hours per infectious disease recommendations. Wound cultures thus far show Staphylococcus aureus. Guarded prognosis. 05/06/2019 Patient is sitting up in the bed in no acute distress. Left leg is elevated on some pillows. Patient is awaiting to see Dr. Boland today status post debridement yesterday of left lower leg wound. Patient is using Santyl with Deion wraps for wound care at this time. Patient is being monitored closely. Infectious disease is following as well. Patient denies any chest pain, shortness of breath, or palpitations at this time. Patient denies any nausea or vomiting and is tolerating diet. Patient is having some mild discomfort of the lower left leg but is tolerable. Patient denies any numbness or tingling to the left lower foot. This morning's labs show a potassium of 5.3 and current creatinine is 1.49. Will continue to monitor closely. Blood sugars have been elevated and is being covered per sliding scale at this time. Nephrology is following as well. Guarded prognosis Objective - Vital Signs Vital signs: Vital Signs Temp 97.6 F 05/06/19 15:14 Pulse 60 05/06/19 15:14 Resp 16 05/06/19 15:14 BP 149/66 05/06/19 15:14 Pulse Ox 98 05/06/19 15:14 Intake & Output 05/05/19 05/06/19 05/06/19 18:59 06:59 18:59 Intake Total 630 480 Output Total 500 Balance 630 -20 Weight 105.5 kg 105.5 kg Intake: Oral 630 480 Output: Urine 500 Other: Voiding Method Toilet # Voids 1 1 # Bowel Movements 1 - Exam Gen: This is a 78-year-old male sitting up in bed in no acute distress. Vital signs are stable. Temp is 97.5F, pulse is 63, respirations are 20, blood pressure is 156/72, oxygen saturation is 94% on room air HEENT: Head is atraumatic, normocephalic. Pupils equal, round. Sclerae is anicteric. NECK: Supple. No JVD. No lymphadenopathy. No thyromegaly. LUNGS: Diminished breath sounds otherwise clear to auscultation. No wheezes or rhonchi. No intercostal retractions. HEART: S1, S2 are muffled. No murmur. ABDOMEN: Soft. Bowel sounds are present. No masses. No tenderness. EXTREMITIES: No pedal edema. No calf tenderness. Left leg wound shows a decrease in redness and swelling around the wound in a horseshoe pattern. Tissue sloughing with some blood noted after debridement and irrigation yesterday and Santyl applied to the wound per infectious disease. Deion wrap dry and intact of the left lower extremity NEUROLOGICAL: Patient is awake, alert and oriented x3. Cranial nerves 2 through 12 are grossly intact. Gait is steady - Labs CBC & Chem 7: 05/04/19 05:35 05/06/19 06:34 Labs: Abnormal Lab Results - Last 24 Hours (Table) 05/05/19 05/05/19 05/06/19 Range/Units 17:09 21:38 06:19 Potassium (3.5-5.1) mmol/L BUN (9-20) mg/dL Creatinine (0.66-1.25) mg/dL Glucose (74-99) mg/dL POC Glucose (mg/dL) 131 H 281 H 155 H (75-99) mg/dL 05/06/19 05/06/19 05/06/19 Range/Units 06:34 11:36 11:51 Potassium 5.3 H (3.5-5.1) mmol/L BUN 25 H (9-20) mg/dL Creatinine 1.49 H (0.66-1.25) mg/dL Glucose 160 H (74-99) mg/dL POC Glucose (mg/dL) 423 H 256 H (75-99) mg/dL Microbiology - Last 24 Hours (Table) 05/05/19 12:44 Gram Stain - Preliminary Leg - Left Tissue Culture - Preliminary Presumptive Staph aureus 05/01/19 18:05 Blood Culture - Preliminary Blood No Growth after 96 hours 05/05/19 12:44 Anaerobic Culture - Preliminary Leg - Left Assessment and Plan Assessment: Cellulitis, infected wound on the left chacko area with failure of outpatient treatment; patient is currently on Cefazolin and on Santyl daily to the leg wound. Hyperkalemia, severe secondary to renal failure, improving; current potassium is 5.3 Increased creatinine, possibly chronic kidney disease stage III with some acute renal failure, component due to acute tubular necrosis, multifactorial Diabetes mellitus type 2 Hypertension Hyperlipidemia Chronic obstructive pulmonary disease History of coronary artery disease/coronary artery bypass grafting Cholecystectomy Remote history of nicotine dependence Obesity with body mass index of 32.5 Recommendations and discussion: Recommend continue current medications, management, and symptomatically treatment. Infectious disease is following for management of antibiotic therapy. Nephrology is following. Will repeat labs in the a.m. We will monitor blood sugars closely and treat accordingly. We will continue to monitor vital signs and labs closely. Guarded prognosis. Further recommendations to follow. Possible discharge in 24 hours.
[2019-05-06 16:42] LABS: Glucose,Whole Blood 146 mg/dL (75-99)
--- NOTE | 2019-05-06 17:27 | PN ---
PROGRESS NOTE This is a 78 -year-old gentleman who had a traumatic wound to the left lower extremity. The patient had a debridement done yesterday and patient on IV antibiotics. I had to change the dressing today. The wound site looks decent. We will continue with Santyl cream. If the patient goes home on p.o. antibiotic, I will like to see him on Sunday in my office. Then patient will be arranged for home care 3 times a week and I will arrange to see me in the [facility], but I would like to see him Sunday in my office. MORGAN / JUDY: [id number] /
--- NOTE | 2019-05-06 17:30 | PN ---
PROGRESS NOTE The patient is seen for followup for acute kidney injury. His renal function has improved and is staying stable with creatinine about 1.4-1.5 mg/dL. The patient is being treated for left foot ulcer and wound and he had debridement done by Dr. Boland yesterday. PHYSICAL EXAMINATION: On examination today, blood pressure was 156/72, heart rate 63 per minute. He is afebrile. Examination of the heart S1, S2. Examination of the lungs, bilateral breath sounds are heard. Abdomen is soft, nontender. Exam of lower extremities shows trace edema bilaterally, worse on the left leg. [employer] exam grossly intact. LABS: Show sodium 140, potassium 5.3, chloride 106, BUN 25, serum creatinine 1.49. ASSESSMENT: 1. Acute kidney injury, acute tubular necrosis and volume depletion, currently improved. 2. Left lower extremity wound status post debridement, maintained on antibiotics. 3. Hyperkalemia associated with renal failure. Currently improved and stable. The blood sugars have been running slightly on the higher side and this will worsen the hyperkalemia. 4. Type 2 diabetes. 5. Questionable mass right kidney, which may need further evaluation as outpatient. PLAN: May continue with antibiotics. Follow up as outpatient. Maintain patient on low- potassium diet and continue to hold off on SYDNIE inhibitors for now given the hyperkalemia. MMODL / IJN: [id number] /
[2019-05-06 21:27] LABS: Glucose,Whole Blood 173 mg/dL (75-99)
[2019-05-06] MEDS: CLOPIDOGREL 75 MG TAB PO SCH (22:54)
--- NOTE | 2019-05-07 05:45 | PN ---
PROGRESS NOTE DATE OF SERVICE: 05/06/2019 REASON FOR FOLLOWUP: Left leg wound with secondary cellulitis. INTERVAL HISTORY: The patient is currently afebrile. The patient has been breathing comfortably. Denies having any chest pain or any cough. No nausea, vomiting. No abdominal pain or any worsening pain to the left leg area. PHYSICAL EXAMINATION: On examination, blood pressure is 130/63 with a pulse of 63, temperature 97.8. He is 94% on room air. General description is an elderly male lying in bed in no distress. RESPIRATORY SYSTEM: Unlabored breathing, clear to auscultation anteriorly. HEART: S1, S2. Regular rate and rhythm. ABDOMEN: Soft, no tenderness. Left leg is currently dressed up. No obvious drainage on the dressing. LABS: BUN of 25, creatinine is 1.49. DIAGNOSTIC IMPRESSION AND PLAN: Patient with left leg wound with secondary cellulitis, culture positive for MSSA. Currently covered with cefazolin. Local wound care with Santyl. Plan to finish therapy with oral antibiotics. Continue with supportive care. MMODL / IJN: [id number] /
[2019-05-07 06:14] LABS: Glucose,Whole Blood 171 mg/dL (75-99)
[2019-05-07] MEDS: INSULIN ASPART (NovoLOG) 100 UNIT/ML VIAL SQ SCH ×2 (06:34→11:49)
[2019-05-07] MEDS: LEVOFLOXACIN 250 MG TAB PO SCH (06:35)
[2019-05-07 06:57] LABS: HCT 49.9 % (39.0-53.0); HGB 15.7 gm/dL (13.0-17.5); MCH 31.2 pg (25.0-35.0); MCHC 31.5 g/dL (31.0-37.0); MCV 99.2 fL (80.0-100.0); Mean Platelet Volume 8.7; Platelet Count 225 k/uL (150-450); RBC 5.03 m/uL (4.30-5.90); RDW 13.5 % (11.5-15.5); WBC 6.4 k/uL (3.8-10.6)
[2019-05-07 07:07] LABS: Calcium 9.8 mg/dL (8.4-10.2); Potassium 5.4 mmol/L (3.5-5.1)
[2019-05-07 08:00] VITALS: RESP 20
[2019-05-07] MEDS: HEPARIN SODIUM,PORCINE 5,000 UNIT/ML 1 ML VIAL SQ SCH (08:35)
[2019-05-07] MEDS: ALLOPURINOL 100 MG TAB PO SCH (08:35)
[2019-05-07] MEDS: GABAPENTIN 100 MG CAP PO SCH (08:35)
[2019-05-07] MEDS: METOPROLOL SUCCINATE (ER) 100 MG TAB.ER.24H PO SCH (08:35)
[2019-05-07 11:25] VITALS: TEMP 97.5
[2019-05-07] MEDS: COLLAGENASE 250 UNIT/GM OINTMENT 30 GM TUBE TOPICAL SCH (11:25)
[2019-05-07 11:44] VITALS: BP 132/69; PULSE 65
[2019-05-07 11:46] LABS: Glucose,Whole Blood 234 mg/dL (75-99)
--- NOTE | 2019-05-07 12:58 | PN ---
PROGRESS NOTE DATE OF SERVICE: 05/07/2019 REASON FOR FOLLOWUP: Left leg wound with secondary cellulitis. INTERVAL HISTORY: The patient is currently afebrile. The patient has been breathing comfortably. The patient denies having any chest pain, shortness of breath or cough and no diarrhea. PHYSICAL EXAMINATION: Blood pressure is 132/69 with a pulse of 65, temperature 97.5. He is 96% on room air. General description is an elderly male, up in the bed in no distress. RESPIRATORY SYSTEM: Unlabored breathing, clear to auscultation anteriorly. HEART: S1, S2. Regular rate and rhythm. ABDOMEN: Soft, no tenderness. EXTREMITIES: Left leg is dressed, no obvious drainage on the dressing. LABS: Hemoglobin 15.7, white count 6.4. DIAGNOSTIC IMPRESSION AND PLAN: Patient with Methicillin-sensitive Staphylococcus aureus left leg wound with secondary cellulitis. Local wound care to continue with Santyl. Antibiotic was switched to oral Keflex. Follow up in the [facility] in 1 week. Continue supportive care. MMODL / IJN: [id number] /
--- NOTE | 2019-05-07 16:32 | P.DS ---
Providers Date of admission: 05/01/19 17:22 Expected date of discharge: 05/07/19 Attending physician: Abisai Montana Consults: 05/01/19 22:52 Consult Physician Routine Consulting Provider: [facility] Consult Reason/Comments: left lower extremity wound failed op Do you want consulting provider notified?: Yes, Notify in am 05/01/19 23:45 Consult Physician Routine Consulting Provider: Ha Evans Consult Reason/Comments: cellulitis Do you want consulting provider notified?: Yes 05/02/19 10:33 Consult Physician Routine Consulting Provider: Beck Cruz Consult Reason/Comments: hyperkalemia Do you want consulting provider notified?: Yes 05/04/19 17:24 Consult Physician Routine Consulting Provider: Kamlesh Boland Consult Reason/Comments: r/o PAD Do you want consulting provider notified?: Yes Primary care physician: Pb Muir MD Hospital Course: Final diagnosis Cellulitis, infected wound on the left chacko area with failure of outpatient tr eatment Hyperkalemia, severe secondary to renal failure Increased creatinine, possibly chronic kidney disease stage III with some acute renal failure, component due to acute tubular necrosis, multifactorial Diabetes mellitus type 2 Hypertension Hyperlipidemia Chronic obstructive pulmonary disease History of coronary artery disease/coronary artery bypass grafting Cholecystectomy Remote history of nicotine dependence Obesity with body mass index of 32.5 Discharge disposition Patient is being discharged in a stable condition with guarded prognosis to home and Homecare will follow-up with him. Patient has an appointment this Sunday with Dr. Bernardo and the wound care clinic for follow-up and wound care dressing change. Patient will go home on oral antibiotics and completed 10 day course of Keflex per infectious disease recommendations. History of present illness This is a 78-year-old male who was recently admitted for left lower leg cellulitis and wound with failed outpatient therapy. Patient was found to have mild hyperkalemia secondary to acute renal failure, possibly chronic kidney disease stage III, possibly due to acute tubular necrosis. Nephrology was following. Patient will follow-up with nephrology in the outpatient setting. Patient is to continue a low potassium diet and avoid sydnie inhibitors until follow-up with primary care provider nephrology. Patient denies any shortness of breath, chest pain, or palpitations at this time. Patient remains afebrile. Patient states there is some mild dull pain to the left lower extremity but is manageable. Patient denies any nausea or vomiting and has been tolerating diet. Patient will like to go home today. is at the bedside. Patient does have a scheduled appointment this Sunday with Dr. Boland and the wound care clinic. Patient verbalized understanding of the treatment plan and agrees with the plan. On exam, vital signs are stable. Blood pressure is 132/69, pulse is 65, temp is 97.5F, respirations are 20, oxygen saturation is 96% on room air. Total time taken is 30 minutes. Cardio S1 and S2 are normal. Respiratory system shows clear to auscultation. Abdomen is soft and nontender. Nervous system shows no focal deficits and gait is steady. Left lower leg is wrapped with Santyl and Kerlex. Dressing is dry and intact. Please refer to medication reconciliation sheet for a list of medications. Patient Condition at Discharge: Stable Plan - Discharge Summary Discharge Rx Participant: No New Discharge Prescriptions: New Cephalexin [Keflex] 500 mg PO Q6HR 10 Days #40 cap Continue Metoprolol Succinate [Toprol XL] 100 mg PO DAILY Glimepiride [Amaryl] 4 mg PO BID Furosemide [Lasix] 20 mg PO DAILY PRN PRN Reason: Edema Clopidogrel Bisulfate [Plavix] 75 mg PO HS Albuterol Sulfate [Proair Hfa] 1 - 2 puff INHALATION Q6HR PRN PRN Reason: Shortness Of Breath Atorvastatin Calcium [Lipitor] 40 mg PO HS Allopurinol [Zyloprim] 100 mg PO DAILY metFORMIN HCL [Glucophage] 500 mg PO BID Gabapentin [Neurontin] 100 mg PO TID Discontinued Lisinopril 20 mg PO HS Discharge Medication List Glimepiride [Amaryl] 4 mg PO BID 12/16/15 [History] Metoprolol Succinate [Toprol XL] 100 mg PO DAILY 12/16/15 [History] Albuterol Sulfate [Proair Hfa] 1 - 2 puff INHALATION Q6HR PRN 05/01/19 [History] Allopurinol [Zyloprim] 100 mg PO DAILY 05/01/19 [History] Atorvastatin Calcium [Lipitor] 40 mg PO HS 05/01/19 [History] Clopidogrel Bisulfate [Plavix] 75 mg PO HS 05/01/19 [History] Furosemide [Lasix] 20 mg PO DAILY PRN 05/01/19 [History] Gabapentin [Neurontin] 100 mg PO TID 05/01/19 [History] metFORMIN HCL [Glucophage] 500 mg PO BID 05/01/19 [History] Cephalexin [Keflex] 500 mg PO Q6HR 10 Days #40 cap 05/07/19 [Rx] Follow up Appointment(s)/Referral(s): Brooklyn Ordoñez MD [STAFF PHYSICIAN] - 07/09/19 10:40 am (Sunday -earliest available appointment) Pb Muir MD [Primary Care Provider] - 1-2 days (Office is closed for lunch. Please keep scheduled appointment) [facility], [NON-STAFF] - Kamlesh Boland MD [STAFF PHYSICIAN] - 05/09/19 10:45 am (Sunday) Ambulatory/Diagnostic Orders: Basic Metabolic Panel [LAB.AMB] Time Frame: 2 Days, Location: None Selected Patient Instructions/Handouts: Acute Kidney Injury (DC), Potassium Content of Foods List (DC), Foot Care for People with Diabetes (ED), Diabetic Foot Ulcers (ED) Activity/Diet/Wound Care/Special Instructions: Activity limited until follow up Follow up with Dr. Bernardo on Sunday Follow up with Dr. Evans in one week in the WOUND CARE clinic, call [phone] to make an appointment follow up with nephrology this week Avoid high potassium foods/ low potassium diet Hold on taking SYDNIE inhibitor until follow up with pcp and nephrology repeat labs in 2 days Continue to keep the left leg elevated while at rest. Keep the dressing on until Sunday appointment with Dr. Bernardo. Discharge Disposition: HOME WITH HOME HEALTH SERVICES
== END 2019-05-07 13:18 | disposition home health service (06) | DRG 623 ==
LOC: EC 16:36 → 4MS4W 17:22 → 3SCARD 05-02 13:23
PROVIDERS: ADMIT Hospitalist; ATTEND Hospitalist
PROC: 0JBP0ZZ Excision of Left Lower Leg Subcutaneous Tissue and Fascia, Open Approach (ICD-10-PCS; principal; 2019-05-05)
DX: E11.628 Type 2 diabetes mellitus with other skin complications (principal); L03.116 Cellulitis of left lower limb; E11.65 Type 2 diabetes mellitus with hyperglycemia; Z79.84 Long term (current) use of oral hypoglycemic drugs; S81.812A Laceration without foreign body, left lower leg, initial encounter; L08.9 Local infection of the skin and subcutaneous tissue, unspecified; B95.4 Other streptococcus as the cause of diseases classified elsewhere; B95.61 Methicillin susceptible Staphylococcus aureus infection as the cause of diseases classified elsewhere; E11.621 Type 2 diabetes mellitus with foot ulcer; E11.622 Type 2 diabetes mellitus with other skin ulcer; E66.9 Obesity, unspecified; E78.5 Hyperlipidemia, unspecified; E86.9 Volume depletion, unspecified; E87.5 Hyperkalemia; I10 Essential (primary) hypertension; I25.10 Atherosclerotic heart disease of native coronary artery without angina pectoris; J44.9 Chronic obstructive pulmonary disease, unspecified; N17.0 Acute kidney failure with tubular necrosis; Z68.32 Body mass index [BMI] 32.0-32.9, adult; Z79.899 Other long term (current) drug therapy; Z83.3 Family history of diabetes mellitus; Z87.891 Personal history of nicotine dependence; Z88.0 Allergy status to penicillin; Z95.1 Presence of aortocoronary bypass graft; I87.8 Other specified disorders of veins; Z90.49 Acquired absence of other specified parts of digestive tract
CPT/HCPCS: 36415; 76770; 80048; 80053; 81003; 83605; 83735; 84132; 85025; 85027; 87040; 87070; 87075; 87077; 87186; 87205; 94640; 96374; 99285

== ENCOUNTER → 2019-09-22 | Outpatient (CLI) | payer MEDICARE ==
--- NOTE | 2019-09-22 12:50 | XR ---
EXAMINATION TYPE: XR knee complete LT DATE OF EXAM: 09/22/2019 CLINICAL HISTORY: Anterior pain for a few months. TECHNIQUE: Three views of the left knee are obtained. COMPARISON: None. FINDINGS: There is no acute fracture/dislocation evident in left knee. Mild tricompartment joint spa ce loss without significant spurring. Posterior vascular calcification is identified. IMPRESSION: As above.
[2019-09-22 19:45] LABS: African American GFR (CKD) 41.2 (60.0-200.0); Anion Gap 11.5 mmol/L (4.00-12.00); BUN/Creat Ratio 14.44 Ratio (12.00-20.00); Calcium 9.2 mg/dL (8.7-10.3); Carbon Dioxide 25.5 mmol/L (21.6-31.8); Non-African American GFR(CKD) 35.5 (60.0-200.0); Potassium 5.1 mmol/L (3.5-5.5)
== END | disposition home or self-care (01) ==
LOC: LABWHC1 11:25
PROVIDERS: ATTEND Nurse Practitioner Family
DX: M25.862 Other specified joint disorders, left knee (principal); M25.562 Pain in left knee; N18.3 Chronic kidney disease, stage 3 (moderate)
CPT/HCPCS: 36415; 80048

== ENCOUNTER → 2020-06-18 | Outpatient (CLI) | payer MEDICARE ==
--- NOTE | 2020-06-18 16:00 | US ---
EXAMINATION TYPE: US kidneys/renal and bladder DATE OF EXAM: 06/18/2020 COMPARISON: CT April 23, 2010 CLINICAL HISTORY: N18.3 CKD. CKD stage 3 EXAM MEASUREMENTS: Right Kidney: 11.5 x 5.5 x 5.6 cm Left Kidney: 10.5 x 4.3 x 5.2 cm Right Kidney: no hydronephrosis or masses seen Left Kidney: no hydronephrosis or masses seen Bladder: wnl Bilateral Jets seen: no There is no evidence for hydronephrosis at this point in time. No nephrolithiasis is seen. No gregory s are identified on images saved. Some increased cortical echogenicity bilaterally. The urinary bladd er is satisfactorily distended. Bilateral ureteral jets are not seen. IMPRESSION: No hydronephrosis noted bilaterally.
== END | disposition home or self-care (01) ==
LOC: RADUSWWP 15:32
PROVIDERS: ATTEND Internal Medicine Nephrology
DX: N18.30 Chronic kidney disease, stage 3 unspecified (principal)
CPT/HCPCS: 76770